=== PATIENT | female | born 1950 | race Caucasian/White ===

== ENCOUNTER 2021-07-09 15:10 | Emergency (ER) | payer MEDICARE, SELFPAY ==
[2021-07-09 15:20] VITALS: BP 131/81; PULSE 73; RESP 16; TEMP 36.6; O2SAT 100
--- NOTE | 2021-07-09 15:21 | ED.BACK ---
HPI - Back Pain/Injury General Chief Complaint: Extremity Injury, Upper Stated Complaint: back pain Time Seen by Provider: 07/09/21 15:21 Source: patient and RN notes reviewed History of Present Illness HPI Narrative: Patient is a 71-year-old female who presents to the urgent care with complaints of left shoulder pain. Patient states that she has terrible arthritis and has been getting cortisone shots in the shoulder. Patient states that her last shot was in April which was also her first 1. Patient states that she has had no changes in range of motion. States that approximately 1 week ago she lifted a 40 pound bag of sunflower seeds and has been hurting ever since. Patient states she has been taking her meloxicam with some mild relief. Denies any radiation to the neck. Denies of chest pain. Denies of any cardiac event. No other acute complaints. No acute distress noted. Patient aware of the plan of care. Some parts of this dictation were generated by voice recognition software and may contain typographical and/or grammatical inaccuracies. Related Data Home Medications Medication Instructions Recorded Confirmed levothyroxine 200 mcg PO DAILY 07/09/21 07/09/21 meloxicam 15 mg PO DAILY 07/09/21 07/09/21 simvastatin 20 mg PO DAILY 07/09/21 07/09/21 Allergies Allergy/AdvReac Type Severity Reaction Status Date / Time hydrocodone Allergy Intermediate Rash Verified 07/09/21 15:42 Review of Systems Review of Systems: CONSTITUTIONAL: Denies fever, chills, or sweats. EYES: Denies visual changes, redness, or discharge. ENT: Denies rhinorrhea, congestion, sore throat, or otalgia. CARDIOVASCULAR: Denies chest pain, palpitations, or edema. RESPIRATORY: Denies cough or dyspnea. GASTROINTESTINAL: Denies abdominal pain, nausea, vomiting, or diarrhea. GENITOURINARY: Denies dysuria or hematuria. SKIN: Denies rash or itching. MUSCULOSKELETAL: Reports of posterior left shoulder pain NEUROLOGIC: Denies headache, numbness, or weakness. All other systems reviewed are negative, except as documented in HPI. PMFSH Comments At the time of my signature, I reviewed and agree with the nursing past medical, surgical, social, and family history. There is no relevant family history pertinent to the patient complaint. Exam Narrative: GENERAL: This is a well-nourished, well-developed patient, in no apparent distress. HEAD: normocephalic, atraumatic. EYES: PERRL. Sclera clear/white. Vision is grossly intact. EARS: External ears normal NOSE: External nose normal with no obvious nasal discharge, nares without redness, no rhinorrhea. THROAT: Mucous membranes moist, posterior pharynx clear. NECK: Neck supple, mild left cervical tenderness CARDIOVASCULAR: Regular rate and rhythm without murmurs, gallops, or rubs. RESPIRATORY: Clear to auscultation. Breath sounds equal bilaterally. No wheezes, rales, or rhonchi. SKIN: warm, intact with no suspicious lesions or rash, good texture and turgor. NEURO: awake, alert, and oriented to person, place and time. There were no obvious focal neurologic abnormalities. EXTREMITIES: Mild to moderate posterior left shoulder pain with palpation. Range of motion to left upper extremity within normal limits. Positive strong left radial pulse with capillary refill less than 2 seconds. Course Course Level of Care: Express Care Visit Vital Signs Vital signs: Vital Signs Temperature 98 F 07/09/21 15:20 Pulse Rate 73 07/09/21 15:20 Respiratory Rate 16 07/09/21 15:20 Blood Pressure 131/81 07/09/21 15:20 Pulse Oximetry 100 07/09/21 15:20 Temperature 98 F 07/09/21 15:20 Pulse Rate 73 07/09/21 15:20 Respiratory Rate 16 07/09/21 15:20 Blood Pressure 131/81 07/09/21 15:20 Pulse Oximetry 100 07/09/21 15:20 Reviewed MDM - Back Pain/Injury MDM Narrative Medical decision making narrative: Advised the patient to complete the oral steroid regimen as prescribed. Use the Flexeril as needed pr
== END 2021-07-09 15:55 | disposition home or self-care (01) ==
PROVIDERS: Emergency Provider Nurse Practitioner Family; PCP Family Medicine
DX: M19.012 Primary osteoarthritis, left shoulder (principal); E78.00 Pure hypercholesterolemia, unspecified; M06.9 Rheumatoid arthritis, unspecified; E03.9 Hypothyroidism, unspecified
CPT/HCPCS: 99213; G0463

== ENCOUNTER 2025-05-29 19:01 | Emergency (ER) | payer MEDICARE, SELFPAY ==
--- NOTE | ~2025-05-29 | CT_ITS ---
EXAMINATION: CT brain wo con DATE: 05/29/2025 19:23 INDICATION: 75-year-old with visual disturbance. TECHNIQUE: Computed tomography (CT) of the head was performed without intravenous contrast. The mA was adjusted according to patient size. Iterative reconstruction technique was employed. The dose-length product was 605.33 mGy-cm. COMPARISON: None FINDINGS: No acute intracranial bleed. No extra-axial collections. No evidence of ventriculomegaly or midline shift. No acute bony lesions. IMPRESSION: 1. No focal abnormalities on the limited noncontrast CT head. Reviewed, dictated and finalized at location T. ROL PANEL OPERATOR CRUDE UNIT
--- NOTE | ~2025-05-29 | XR_ITS ---
EXAMINATION: XR chest 1V portable DATE: 05/29/2025 19:51 INDICATION: Visual disturbance, blurred vision TECHNIQUE: A single frontal view of the chest was obtained. COMPARISON: None. FINDINGS: Heart size is normal. Atherosclerotic aorta. Lungs are free of acute processes. IMPRESSION: 1. No acute findings. Atherosclerotic aorta. Reviewed, dictated and finalized at location T. [employer]
--- OUTSIDE RECORDS SUMMARY | 2025-05-29 10:45 | XMS_ITS | Encounter Summary ---
Author Organization [facility] Healthcare Address [address] [place] [address] Care Team Providers Care Digital Media Planner Name Role Phone Himanshu Liz MD Primary Care Provider [phone] Jared Crump MD Unavailable [phone] Steffany Bailey PT Unavailable Unavailable Reason for Visit * Reason Comments Follow-up Patient here for 6 m onth f/u.Patient having trouble seeing out of left eye.Patient does not seem to have strength in both hands.Patient has neuropathy in both legs and feet and coming from back. Patient has been dx with Piriformis syndrome more on right side and has PT scheduled to start. Patient has noticed that when bending over at the waist has been triggering it. Encounter Details Date Type Department Care Team (Late st Contact Info) Description 05/29/2025 10:45 AM RADIOLOGY TECH Office Visit [facility] [address] [place] [address] Himanshu Liz MD [address] [place] [id number] Need for influenza vaccination (Primary Dx) Social History Tobacco Use Types Packs/Day Years Used Date Smoking Tobacco: Never Smokeless Tobacco: Never Alcohol Use Standard Drinks/Week Comments No 0 (1 standard drink = 0.6 oz pur e alcohol) AUDIT-C Answer Date Recorded Q1: How often do you have a drink containing alc ohol? Monthly or less 04/19/2023 Q2: How many drinks containi ng alcohol do you have on a typical day when you are drinking? 1 or 2 04/19/2023 Q3: How often do you have si x or more drinks on one occasion? Never 04/19/2023 PHQ-2 Answer Date Recorded PHQ-2 Total Score (If total score is 3 or more points, staff should administer the PHQ-9) 0 05/29/2025 Personal Safety Answer Date Recorded Have you ever been in or are you currently in a harmful physical or emotional relationship or is someone making you feel afraid or unsafe? Denies 10/13/2023 Comments No Sex and Gender Information Value Date Recorded Sex Assigned at Not on file Legal Sex Female 10:30 AM RADIOLOGY TECH Gender Identity Not on file Sexual Orientation Choose not to disclose 2020 9:16 AM RADIOLOGY TECH Occupation Industry Job Start Date Job End Date retired Not on file Not on file Not on file documented as of this encounter Last Filed Vital Signs Vital Sign Reading Time Taken Comments Blood Pressure 102/68 05/29/2025 11:13 AM RADIOLOGY TECH Pulse 67 05/29/2025 11:13 AM RADIOLOGY TECH Temperature 36.5 C (97.7 F) 05/29/2025 11:13 AM RADIOLOGY TECH Respiratory Rate 16 05/29/2025 11:13 AM RADIOLOGY TECH Oxygen Saturation 97% 05/29/2025 11:13 AM RADIOLOGY TECH room air Inhaled Oxygen Concentration - - Weight 79.4 kg (175 lb) 05/29/2025 11:13 AM RADIOLOGY TECH Height 162.6 cm (5' 4) 05/29/2025 11:13 AM RADIOLOGY TECH Body Mass Index 30.04 05/29/2025 11:13 AM RADIOLOGY TECH documented in this encounter Functional Status * In the past year, patient experienced: Question Answer Date of Assessment Author One or more falls in the last year 2 2024 11:09 AM RADIOLOGY TECH Mallorie Prado CMA How many times? 1 05/29/2025 11:09 AM RADIOLOGY TECH Mallorie Dorsey CMA Was the patient injured in t he fall? No 05/29/2025 11:09 AM RADIOLOGY TECH Mallorie Prado C MA * BP Location Answer Date of Assessment Author Right arm 05/29/2025 11:13 AM RADIOLOGY TECH Mallorie Prado CMA * BP Location Answer Date of Assessment Author Right arm 05/29/2025 11:13 AM RADIOLOGY TECH Mallorie Prado CMA documented as of this encounter Ordered Prescriptions Prescription Sig Dispense Quantity Refills Last Filled Start Date End Date levothyroxine (SYNTHROID) 175 mcg tablet Take 1 tablet (175 mcg total) by mouth daily 90 tablet 05/29/2025 documented in this encounter Plan of Treatment Not on file documented as of this encounter Goals Goal Patient Goal Type Associated Problems Recent Progress Patient-Stated? Author [facility] Lalitha Glynn RN Note: Patient will establish a comfort-function goal and identify the pain level that will allow the patient to perform desired activities and achieve an acceptable quality of life. documented as of this encounter Visit Diagnoses Diagnosis Need for influenza vaccination- Primary Need for prophylactic vaccination and inoculation against influenza documented in this encounter Discontinued Medications Medication Sig Discontinue Reason Start Date End Da te traZODone (DESYREL) 50 mg tablet Take 1 tablet (50 mg total) by mouth nightly as needed for sleep Therapy completed 08/25/2024 05/29/2025 diazePAM (VALIUM) 5 mg tablet Take 1 tablet (5 mg total) by mouth as needed for anxiety Therapy completed 05/12/2025 05/29/2025 diazePAM (VALIUM) 5 mg tablet Take 1 tablet (5 mg total) by mouth as needed for anxiety Therapy completed 05/08/2025 05/29/2025 amoxicillin (AMOXIL) 500 mg tablet/capsule Take 4 tablets one hour prior to dental procedure Therapy completed 08/13/2024 05/29/2025 vitamin D3-vitamin K2 25 mcg (1,000 unit)-90 mcg tablet,disintegrating Take by mouth Therapy completed 05/29/20 25 levothyroxine (SYNTHROID) 175 mcg tablet Take 1 tablet by mouth once daily Reorder 02/26/2025 05/29/2025 documented as of this encounter Historical Medications * This list may reflect changes made after this encounter. multivitamin with minerals tablet Take 1 tablet by mouth daily added in this encounter Orders Immunization/Injection Count Last Ordered Date First Ordered Date FLU VACCINE HD TRI P F (65Y+) IM - FLUZONE HIGH DOSE 1 05/29/2025 documented in this encounter Care Teams Digital Media Planner Relationship Specialty Start Date End Date Himanshu Liz MD [address] [place] [address] PCP - General 09/24/15 Jared Crump MD [address] [place] [address] Surgeon Orthopedic Surgery 09/29/20 Steffany Bailey PT Physical Therapist Physical Therapy 12/11/24 documented as of this encounter
[2025-05-29 19:03] VITALS: BP 140/86; PULSE 91; RESP 20; TEMP 35.6; O2SAT 95
--- NOTE | 2025-05-29 19:05 | ED_ITS ---
HPI - Neuro Symptoms/Deficit General Chief Complaint: Neuro Symptoms/Deficit Stated Complaint: vision change/ stroke Time Seen by Provider: 05/29/25 19:05 Source: patient and family Mode of arrival: ambulatory Limitations: no limitations History of Present Illness HPI Narrative: Patient is a 75-year-old female with visual disturbance this morning. Patient had left eye loss of vision in a portion of her vision this morning. She went to see the biometric fingerprinting technician with a negative evaluation and workup. She also saw her primary doctor today. She mostly came to the ER for evaluation to make sure there was no brain bleed. Per history to the biometric fingerprinting technician. Onset (ago): day(s) (1) Timing confirmed by: family member Location: other (Left eye) History of same: No Severity: mild Quality: improving Relieving factors: none Exacerbating factors: none Context: gradual onset On Anticoagulants: No Associated symptoms: denies other symptoms Treatments Prior to Arrival: none Related Data Home Medications ?Medication ?Instructions ?Recorded ?Confirmed ?Last Taken ?Type levothyroxine 200 mcg tablet 200 mcg PO DAILY 07/09/21 07/09/21 Unknown History meloxicam 15 mg tablet 15 mg PO DAILY 07/09/2106/19 Unknown History simvastatin 20 mg tablet 20 mg PO DAILY 07/09/2106/19 Unknown History Allergies Allergy/AdvReac Type Severity Reaction Status Date / Time hydrocodone Allergy Intermediate Rash Verified 05/29/25 19:15 Review of Systems 2 Review of Systems: All systems reviewed & are unremarkable except as noted in HPI and below Constitutional: Constitutional: Reports no additional constitutional complaints Eyes: Eyes: Reports no additional eye complaints ENT: Reports system reviewed and no additional complaints, except as documented Cardiovascular: Cardiovascular: Reports no additional cardiovascular complaints Respiratory: Respiratory: Reports no additional respiratory complaints Gastrointestinal: Gastrointestinal: Reports no additional gastrointestinal complaints Genitourinary: Genitourinary: Reports no additional female genitourinary complaints Musculoskeletal: Musculoskeletal: Reports no additional musculoskeletal complaints Integumentary/Breasts: Skin/Breast: Reports system reviewed and no additional complaints, except as docu Neurologic: Reports system reviewed and no additional complaints, except as documented Psychiatric: Psychiatric: Reports no additional psychiatric complaints Endocrine: Endocrine: Reports no additional endocrine complaints Hematologic/Lymphatic: Hematologic/Lymphatic: Reports no additional hematologic/lymphatic complaints Allergic/Immunologic: Allergic/Immunologic: Reports no additional allergic/immunologic complaints Exam 2 Const: General: healthy appearing Nutritional Appearance: well nourished Orientation/consciousness: patient oriented x3 Limitations: no limitations HENMT: Head: normal to inspection Ears: external ears normal F holger/Nose/Sinus: Normal external nose present Eyes: Conjunctivae: conjunctivae normal Pupils: Equal, round and reactive pupils present EOM: EOMs intact bilaterally Neck: Neck: normal visual inspection Chest: Chest palpation & inspection: normal inspection of the chest Resp: Effort & Inspection: normal respiratory effort and not labored A uscultation: clear to auscultation bilaterally and no crackles Cardio: Rate: regular rate Rhythm: regular rhythm Heart sounds: no murmurs GI: Inspection: non-distended GI Palp: Yes Soft to palpation and No Tenderness to palpation present (GI) Auscultation: normal bowel sounds : General: Yes bladder normal to palpation Back/Spine/Pelvis: Back: no CVA tenderness Skin: General skin exam: normal color Rashes: no rashes Wounds: no wounds Neuro: General: patient oriented x3, moves all extremities, no meningeal signs, no focal motor deficits and CN's II-XI intact bilaterally Cranial nerves: Yes Nystagmus not present Speech: normal speech Gait exam (Neuro): Normal gait present Other: Fast exam negative, NIH score 0, GCS is 15 Extrem: General: normal to inspection, no clubbing, cyanosis or edema and no pedal edema Psych: Mental Status: mental status grossly normal Affect: normal affect Attitude: cooperative Course Vital Signs Vital signs: Vital Signs Temperature 35.6 C L 05/29/25 19:03 Pulse Rate 91 05/29/25 19:03 Respiratory Rate 20 05/29/25 19:03 Blood Pressure 140/86 05/29/25 19:03 Pulse Oximetry 95 05/29/25 19:03 Oxygen Delivery Room Air 05/29/25 19:03 Temperature 36.6 C 05/29/25 21:17 Pulse Rate 76 05/29/25 21:17 Respiratory Rate 16 05/29/25 21:17 Blood Pressure 142/85 H 05/29/25 21:17 Pulse Oximetry 98 05/29/25 21:17 Oxygen Delivery Room Air 05/29/25 21:17 MDM MDM Narrative Medical decision making narrative: Patient is a 75-year-old female with a vision change this morning to her left eye which has progressively gotten better throughout the day. Neuro workup at this time. Patient does not meet criteria for TNK. Patient started symptoms this morning and it is already after 7:00 a.m. evening. Differential Diagnosis Differential Diagnosis: CVA, TIA, visual related change Lab Data MDM Lab Attestation statement: I personally reviewed the patient's lab results. 05/29/25 20:16 05/29/25 20:16 Labs: Lab Results 05/29/25 05/29/25 Range/Units 19:37 20:16 WBC 6.2 (4.8-10.8) K/mm3 RBC 4.25 (4.20-5.40) M/mm3 Hgb 13.3 (11.7-13.8) g/dL Hct 39.6 (35.0-42.0) % MCV 93.2 (78.0-102.0) fL MCH 31.3 H (27.0-31.0) pg MCHC 33.6 (32-36) g/dL RDW 13.3 (11.6-14.4) % Plt Count 254 (150-420) K/mm3 MPV 10.6 (9.2-11.8) fl Immature Gran % (Auto) 0.2 H (0.0-0.0) % Neut % (Auto) 68.0 (50.0-70.0) % Lymph % (Auto) 20.1 (18.0-42.0) % Crane % (Auto) 8.6 (2.0-11.0) % Eos % (Auto) 2.6 (1.0-6.0) % Baso % (Auto) 0.5 (0.0-1.0) % Lymph # (Auto) 1.24 (1.10-4.50) K/mm3 Crane # (Auto) 0.53 (0.10-0.90) K/mm3 Eos # (Auto) 0.16 (0.02-0.50) K/mm3 Baso # (Auto) 0.03 (0.00-0.10) K/mm3 Abs Immat Gran (auto) 0.01 H (0.00-0.00) K/mm3 Absolute Neuts (auto) 4.20 (1.70-7.20) K/mm3 Absolute Nucleated RBC 0.00 (0.00-0.00) K/mm3 Nucleated RBC % 0.0 (0-0.0) % ESR 25 H (0-20) mm/hr Sodium 141 (137-145) mmol/L Potassium 4.1 (3.4-5.0) mmol/L Chloride 104 (98-107) mmol/L Carbon Dioxide 26 (22-30) mmol/L Anion Gap 11 (4-12) mmol/L BUN 27 H (7-17) mg/dL Creatinine 0.89 (0.7-1.0) mg/dL Estim Creat Clear Calc 49 ml/min Estimated GFR > 60 (59 - ) Glucose 109 (65-110) mg/dL Calculated Osmolality 298 H (285-295) mOsm/kg Lactic Acid 1.4 (0.7-2.0) mmol/L Calcium 9.6 (8.4-10.2) mg/dL Total Bilirubin 1.1 (0.2-1.3) mg/dL AST 36 (14-36) U/L ALT 26 (6-35) U/L Alkaline Phosphatase 88 (38-126) U/L Troponin I < 0.012 (0.000-0.034) ng/mL Total Protein 7.3 (6.3-8.2) g/dL Albumin 4.6 (3.5-5.1) g/dL Urine Color Light yellow (Yellow) Urine Appearance Sl cloudy A (Clear) Urine pH 6.0 (5.0-8.0) Ur Specific [place] >= 1.030 H (1.010-1.020) Urine Protein Negative (Negative) Urine Glucose (UA) Negative (Negative) Urine Ketones Trace H (Negative) Ur Blood (Man) Trace-intact H (Negative) Urine Nitrate Negative (Negative) Urine Bilirubin Negative (Negative) Urine Urobilinogen 0.2 (0.2-1.0) mg/dL Leukocyte Esterase Rfl 2+ H (Negative) AGUSTÍN/UL Urine RBC 0-2 (0-2) /hpf Urine WBC 21-30 H (0-3) /hpf Urine WBC Clumps Present H (None) /hpf Ur Squamous Epith Cells Occasional (Few) /hpf Urine Bacteria 1+ H (None) /hpf Hyaline Casts 3-4 H (None) /lpf Granular Casts 1-2 H (None) /lpf Imaging Data Attestation: I personally reviewed and interpreted this imaging study as follows: Radiologist's impression: ITS Impressions Head CT 05/29/25 19:24 IMPRESSION: 1. No focal abnormalities on the limited noncontrast CT head. Chest X-Ray 05/29/25 19:52 IMPRESSION: 1. No acute findings. Atherosclerotic aorta. ECG Data EKG #1: Attestation: I personally reviewed and interpreted this ECG as follows: ECG completion date: 05/29/25 ECG completion time: 23:20 normal rate, sinus rhythm, PVCs, PACs, non-specific ST changes, normal QRS and NL axis Discharge Plan Discharge Clinical Impression: Acute UTI, Alteration in vision Patient Disposition: Home Condition: Stable Instructions: Antibiotic Form, Blurred Vision (ED), Urinary Tract Infection in Older Adults (ED) Additional Instructions: Please follow-up with the primary doctor in the next week. I suggest seeing a longitudinal float operator doctor If the vision continues to be a problem. Come back to the emergency room with any worsening condition. Patient Language: Vietnamese Prescriptions: New ciprofloxacin HCl [Cipro] 500 mg tablet 500 mg PO BID 7 Days Qty: 14 0RF No Action levothyroxine 200 mcg tablet 200 mcg PO DAILY meloxicam 15 mg tablet 15 mg PO DAILY simvastatin 20 mg tablet 20 mg PO DAILY prednisone 10 mg tablet See Rx Instructions .ROUTE .COMPLEX Qty: 30 0RF Rx Instructions: 4 tabs daily for days 1-3, 3 tabs daily for days 4-6, 2 tabs daily for days 7-9, 1 tab daily for days 10-12 cyclobenzaprine 5 mg tablet 5 mg PO TID PRN (Reason: muscle spasm) Qty: 20 0RF Follow-up/Referrals: Harms,Himanshu Wilson M.D. [Primary Care Provider] Time of Disposition: 22:07
--- NOTE | 2025-05-29 19:16 | ECG_ITS ---
Test Date: 2025-05-29 19:29:28 Measurements Intervals [place] Rate: 73 P: 7 TN: 134 QRS: 2 QRSD: 88 T: 38 QT: 363 QTc: 400 Interpretive Statements SINUS RHYTHM POSSIBLE RIGHT VENTRICULAR CONDUCTION DELAY BORDERLINE ECG No previous ECG available for comparison Electronically Signed On 05-30-2025 08:41:46 [employer] by Porfirio Galvez D.O.
[2025-05-29 19:43] LABS: Add Urine Microscopic? YES; Glucose Urine UA Negative (Negative); Leukocyte Esterase Ur 2+ LEU/UL (Negative); Nitrate Urine Negative (Negative); Specific Grav Ur >= 1.030 (1.010-1.020)
[2025-05-29 19:52] LABS: Appearance Urine Sl Cloudy (Clear)
--- OUTSIDE RECORDS SUMMARY | 2025-05-29 20:04 | XMS_ITS | Encounter Summary ---
Author Organization [facility] Address [address] [place] [address] Care Team Providers Care Communications Advisor Name Role Phone Howard Valenzuela MD Unavailable [phone] Himanshu Liz MD Primary Care Provider [phone] Howard Valenzuela MD Unavailable [phone] Encounter Details Date Type Department Care Team (Late st Contact Info) Description 06/14/2016 [facility] Outpatient Visit [facility] Orthopedics [address] [place] [address], [address] [address] Unknown, Provider Social History Tobacco Use Types Packs/Day Years Used Date Smoking Tobacco: Never Alcohol Use Standard Drinks/Week Comments No 0 (1 standard drink = 0.6 oz pur e alcohol) Comments No Sex and Gender Information Value Date Recorded Sex Assigned at Not on file Legal Sex Female 6:18 AM COTTON BALER Gender Identity Not on file Sexual Orientation Not on file documented as of this encounter Functional Status * Is person deaf or have serious hearing difficulty? Answer Date of Assessment Author No 05/28/2016 1:10 PM COTTON BALER Dennise Lopez RN * Is person blind or have serious difficulty seeing? Answer Date of Assessment Author No 05/28/2016 1:10 PM COTTON BALER Dennise Lopez RN * Does person have serious difficulty walking/climbing stairs? Answer Date of Assessment Author No 05/28/2016 1:10 PM COTTON BALER Dennise Lopez RN * Does person have difficulty dressing/bathing? Answer Date of Assessment Author No 05/28/2016 1:10 PM Dennise Johnston RN * Does person have difficulty doing errands alone? Answer Date of Assessment Author No 05/28/2016 1:10 PM Dennise Johnston RN documented as of this encounter Mental Status * Does person have difficulty concentrating/remembering/making decisions? Answer Entry Date Author No 05/28/2016 1:10 PM Dennise Johnston RN documented in this encounter Plan of Treatment Not on file documented as of this encounter Visit Diagnoses Not on filedocumented in this encounter Care Teams Communications Advisor Relationship Specialty Start Date End Date Himanshu Liz MD [address] [place] [address] PCP - General Internal Medicine 02/14/16 [place] [id number] [place] [address] [id number] Orthopedic Surgery 11/04/13 [place] [id number] [place] [address] Surgeon Orthopedic Surgery 05/18/20 documented as of this encounter
--- OUTSIDE RECORDS SUMMARY | 2025-05-29 20:04 | XMS_ITS | Encounter Summary ---
Author Organization [facility] Healthcare Address [address] [place] [address] Care Team Providers Care Automation Controls Expert Name Role Phone Himanshu Liz MD Primary Care Provider [phone] Jared Crump MD Unavailable [phone] Yeimy Alanis MA Unavailable [phone] Steffany Bailey PT Unavailable Unavailable Encounter Details Date Type Department Care Team (Late st Contact Info) Description 10/07/2020 Telephone [facility] - Imaging [address] [place] [address] Transcribed Order, Provider Social History Tobacco Use Types Packs/Day Years Used Date Smoking Tobacco: Never Smokeless Tobacco: Never Alcohol Use Standard Drinks/Week Comments No 0 (1 standard drink = 0.6 oz pur e alcohol) AUDIT-C Answer Date Recorded Q1: How often do you have a drink containing alc ohol? 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 Author [facility] No Lalitha Granados, RASHEL Note: Patient will establish a comfort-function goal and identify the pain level that will allow the patient to perform desired activities and achieve an acceptable quality of life. documented as of this encounter Visit Diagnoses Not on filedocumented in this encounter Additional Health Concerns Infection Onset Date Last Indicated Resolved Time COVID: Suspected 01/02/2022 01/02/2022 01/02/2022 2:58 PM CDT COVID: Suspected 01/02/2022 01/02/2022 01/02/2022 3:12 PM CDT COVID: Suspected 01/25/2023 01/25/2023 01/25/2023 10:09 AM CDT COVID19 01/25/2023 01/25/2023 02/04/2023 3:05 AM CDT COVID: Recovered Comment:Added based on recent COVID infection. 02/04/2023 02/11/2023 05/05/2023 3:[address] documented as of this encounter Care Teams Automation Controls Expert Relationship Specialty Start Date End Date Himanshu Liz MD [address] [place] [address] PCP - General 09/24/15 Jared Crump MD [address] [place] [address] Surgeon Orthopedic Surgery 09/29/20 Yeimy Alanis MA [address] [place] [address] [place] [address] ACO Care Experimental Mechanic Spacecraft 02/10/22 02/12/22 Steffany Bailey PT Physical Therapist Physical Therapy 12/11/24 documented as of this encounter
--- OUTSIDE RECORDS SUMMARY | 2025-05-29 20:04 | XMS_ITS | Encounter Summary ---
Author Organization [facility] Healthcare Address [address] [place] [address] Care Team Providers Care Drivability Technician Name Role Phone Himanshu Liz MD Primary Care Provider [phone] Jared Crump MD Unavailable [phone] Yeimy Alanis MA Unavailable [phone] Steffany Bailey PT Unavailable Unavailable Encounter Details Date Type Department Care Team (Late st Contact Info) Description 12/10/2020 Telephone [facility] - Imaging [address] [place] [address] Transcribed Order, Provider Social History [...] points, staff should administer the PHQ-9) 0 10/25/2020 Comments No Sex and Gender Information Value Date Recorded Sex Assigned at Not on file Legal Sex Female 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 Gender Identity Not on file Sexual Orientation Choose not to disclose 2020 9:16 AM NEWS CLIPPING CUTTER Occupation Industry Job Start Date Job End [...] documented as of this encounter Care Teams Drivability Technician Relationship Specialty Start Date End Date Himanshu Liz MD [address] [place] [address] PCP - General 09/24/15 Jared Crump MD [address] [place] [address] Surgeon Orthopedic Surgery 09/29/20 Yeimy Alanis MA [address] [place] [address] [place] [address] ACO Care Junior Account Executive 02/10/22 02/12/22 Steffany Bailey PT Physical Therapist Physical Therapy 12/11/24 documented as of this encounter
--- OUTSIDE RECORDS SUMMARY | 2025-05-29 20:04 | XMS_ITS | Encounter Summary ---
Author Organization [facility] Address [address] [facility] [place] [address] Care Team Providers Care Desktop Manager Name Role Phone Howard Valenzuela MD Unavailable [phone] Himanshu Liz MD Primary Care Provider [phone] Howard Valeznuela MD Unavailable [phone] Encounter Details Date Type Department Care Team (Late st Contact Info) Description 01/04/2024 Lab Requisition [facility] - DermPath Lab [address] [place] [id number] [place]andal [place] [address] Social History Tobacco Use Types Packs/Day Years Used Date Smoking Tobacco: Never Smokeless Tobacco: Never Alcohol Use Standard Drinks/Week Comments No 0 (1 standard drink = 0.6 oz pur e alcohol) Comments No Sex and Gender Information Value Date Recorded Sex Assigned at Not on file Legal Sex Female 6:18 AM ART OBJECTS 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 Answer Date of Assessment Author No 05/28/2016 1:10 PM Dennise Johnston RN * Is person blind or have serious difficulty seeing? Answer Date of Assessment Author No 05/28/2016 1:10 PM Dennise Johnston RN * Does person have serious difficulty walking/climbing stairs? Answer Date of Assessment Author No 05/28/2016 1:10 PM Dennise Johnston RN * Does person have difficulty dressing/bathing? [...] on file documented as of this encounter Procedures Procedure Name Priority Date/Time Associated Diagnosis Comments DERMATOPATHOLOGY Routine 01/02/2024 12:0 0 AM CDT documented in this encounter Results * DERMATOPATHOLOGY (01/02/2024 12:00 AM CDT) Case Report Dermatopathology Report Case: [id number] Authorizing Provider: Randal Miller MD Collected: 01/02/2024 12:00 AM Ordering Location: [facility] - Received: 01/04/2024 01:31 PM DermPath Lab Pathologist: China Villegas MD Specimens: A) - Skin, right lateral calf B) - Skin, nail clippings 4 4:41 PM CDT DERMATOPATHOLOGY LABORATORY Final Diagnosis Specimen A. 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 SKIN, nail clippings: ONYCHOMYCOSIS (B35.1) 4 4:41 PM CDT DERMATOPATHOLOGY LABORATORY at 1641 CDT Clinical History A: R/O KA vs SCC B: R/O Onychomycosis 4 4:41 PM CDT DERMATOPATHOLOGY LABORATORY Gross Description Specimen A: Received is one formalin filled container labeled with the patient's name and designated right lateral calf. The specimen consists of a shave biopsy measuring 48y33j1 mm. Jar 0. Specimen B: Received is one formalin filled container labeled with the patient's name and designated nail clippings. The specimen consists of a nail clipping measuring 5x9x2,3x5x2,4x6x2,3 x3x1,5x4x1,3x7x2,4x 7x2,3x7x2,2x6x1,4x5 x1,3x4x1,3x5x1,2x5x 1,3x8x1,4x4x1,4x4x1 mm. 4:41 PM CDT DERMATOPATHOLOGY LABORATORY Microscopic Description Specimen A. SKIN, right lateral calf: Sections show an endo exophytic crateriform lesion with a keratotic plug, formed by confluent follicle-like structures with relatively large keratinocytes and neutrophilic abscesses. Specimen B. SKIN, nail clippings: Sections show nail plate. Fungal hyphae are present on Periodic acid-Lori (PAS) stained sections. 4:41 PM CDT DERMATOPATHOLOGY LABORATORY Disclaimer An external and internal positive and negative controls are appropriate for the histochemical, immunohistochemical and immunofluorescence stain(s) in this case (if any), except where stated explicitly. The performance characteristics of the stain(s) cited in this report were developed and its performance characteristic determined by the Dermatopathology Laboratory at [facility], directed by Dr. Darlene Owens. These tests need not be, and therefore are not, approved by the [place] Food and Drug Administration. The tests are used for clinical purposes. Billing Codes Specimen Charges Stain Charges 09429 59240 1 1 99520 1 4:41 PM CDT DERMATOPATHOLOGY LABORATORY Embedded Images 4:41 PM CDT DERMATOPATHOLOGY LABORATORY Pathology/Cytology TISSUE SPECIMEN FROM SKIN / Unknown 01/02/2024 01/04/2024 1:31 PM CDT Miscellaneous samples (specimen) TISSUE SPECIMEN FROM SKIN / Unknown 01/02/2024 01/04/2024 1:31 PM CDT Randal Miller MD LAB - PATHOLOGY/CYTOLOGY ORD ERABLES Final Result DERMATOPATHOLOGY LABORATORY [facility] - Department of Dermatology [address] [phone] documented in this encounter Visit Diagnoses Not on filedocumented in this encounter Care Teams Desktop Manager Relationship Specialty Start Date End Date Himanshu Liz MD [address] [place] [address] PCP - General Internal Medicine 02/14/16 [place] [address] [place] [address] [id number] Orthopedic Surgery 11/04/13 [place] [address] [place] [address] Surgeon Orthopedic Surgery 05/18/20 documented as of this encounter
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
--- OUTSIDE RECORDS SUMMARY | 2025-05-29 20:04 | XMS_ITS | Encounter Summary ---
Author Organization [facility] Healthcare Address [address] [place] [address] Care Team Providers Care Fabrication Supervisor Name Role Phone Himanshu Liz MD Primary Care Provider [phone] Jared Crump MD Unavailable [phone] Yeimy Alanis MA Unavailable [phone] Steffany Bailey PT Unavailable Unavailable Encounter Details Date Type Department Care Team (Late st Contact Info) Description 06/29/2020 Telephone [facility] - Imaging [address] [place] [address] Transcribed Order, Provider Social History Tobacco Use Types Packs/Day Years Used Date Smoking Tobacco: Never Smokeless Tobacco: Never Alcohol Use Standard Drinks/Week Comments No 0 (1 standard drink = 0.6 oz pur e alcohol) PHQ-2 Answer Date Recorded PHQ-2 Total Score (If total score is 3 or more points, staff should administer the PHQ-9) 0 04/14/2020 Comments No Sex and Gender Information Value Date Recorded Sex Assigned at Not on file Legal Sex Female 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 Gender Identity Not on file Sexual Orientation Choose not to disclose 2020 9:16 AM GIS PHYSICAL SCIENTIST Occupation Industry Job Start Date Job End [...] documented as of this encounter Care Teams Fabrication Supervisor Relationship Specialty Start Date End Date Himanshu Liz MD [address] [place] [address] PCP - General 09/24/15 Jared Crump MD [address] [place] [address] Surgeon Orthopedic Surgery 09/29/20 Yeimy Alanis MA [address] [place] [address] [address] [place] [address] ACO Care Poultry Farmer Egg 02/10/22 02/12/22 tSeffany Bailey PT Physical Therapist Physical Therapy 12/11/24 documented as of this encounter
--- OUTSIDE RECORDS SUMMARY | 2025-05-29 20:04 | XMS_ITS | Clinical Summary ---
Author Organization [facility] Address [address] [place] [address] Phone Care Team Providers Care Director Of Enterprise Strategy Name Role Phone Himanshu Liz MD Primary Care Provider [phone] Family History Medical History Relation Name Comments Breast Cancer Maternal Aunt Breast Cancer Mother Relation Name Status Comments Maternal Aunt Mother Social History Tobacco Use Types Packs/Day Years Used Date Smoking Tobacco: Never Assessed Comments No Sex and Gender Information Value Date Recorded Sex Assigned at Not on file Legal Sex Female 10:09 PM CDT Gender Identity Not on file Sexual Orientation Not on file Plan of Treatment Health Maintenance Due Date Last Done Comments Hepatitis C Virus (HCV) Screening 1950 TdaP Immunization 1950 Pneumococcal Immunization (5 0+ years) (1 of 1 - PCV) 1999 Zoster Immunization (1 of 2) 1999 Respiratory Syncytial Virus (RSV) Immunization (Adult) (1 - 1-dose 75+ series) 2024 Influenza Immunization (#1) 2025 SARS-COV-2 Immunization ( - season) 2025 Mammogram Discontinued 04/24/2016 Hepatitis B Immunization Aged Out No longer eligible based on patient's age to complete this topic Human Papillomavirus (HPV) Immunization (No Doses Required) Completed Meningococcal Immunization (ACWY) Aged Out No longer eligible based on patient's age to complete this topic Rotavirus Immunization Aged Out No lo nger eligible based on patient's age to complete this topic Procedures Procedure Name Priority Date/Time Associated Diagnosis Comments SERGEY SCREENING BILATERAL DIGITAL W CAD Routine 04/24/2016 4:07 PM PAPER MAKER Encounter for screening mammogram for malignant neoplasm of breast from Last 3 Months or Most Recently Relevant to Health Maintenance Results * SERGEY SCREENING BILATERAL DIGITAL W CAD (04/24/2016 4:07 PM PAPER MAKER) Anatomical Region Laterality Modality breast Bilateral Mammography 04/24/2016 3:54 PM PAPER MAKER Narrative 04/28/2016 4:53 PM PAPER MAKER - SERGEY SCREENING BILATERAL DIGITAL W CAD BILATERAL DIGITAL SCREENING MAMMOGRAM WITH CAD WITH MEDIOLATERAL OBLIQUE CRANIOCAUDAL: 04/24/2016 The study was acquired using digital technology and interpreted from soft copy. Current study was also evaluated with ICAD version 7.2. CLINICAL: Routine screening. Patient has no complaints. No personal history of cancer. Sister with breast cancer. Maternal aunt had breast cancer. COMPARISONS: Comparison is made to exams dated: 06/07/2015 and 06/05/2014 [facility]. BREAST TISSUE: There are scattered fibroglandular densities in both breasts. FINDINGS: There are stable benign asymmetric densities in the right breast. No significant masses, calcifications, or other findings are seen in either breast. There has been no significant interval change. IMPRESSION: BI-RAD 2 BENIGN There is no mammographic evidence of malignancy. A 1 year screening mammogram is recommended. The patient has been or will be contacted. The patient will be entered into a reminder system with a target due date of 1 year for her next screening exam. Electronically signed by: Yvrose Shaffer M.D. pw/:04/28/2016 09:52:23 Button Buttonhole Marker: Madalyn Varela(Jed), [facility] letter sent: Normal Exam Reading location: [facility] BI-RADS: 2 Benign Procedure Note Yvrose Shaffer MD - 04/28/2016 - SERGEY SCREENING BILATERAL DIGITAL W CAD BILATERAL DIGITAL SCREENING MAMMOGRAM WITH CAD WITH MEDIOLATERAL OBLIQUE CRANIOCAUDAL: 04/24/2016 The study was acquired using digital technology and interpreted from soft copy. Current study was also evaluated with ICAD version 7.2. CLINICAL: Routine screening. Patient has no complaints. No personal history of cancer. Sister with breast cancer. Maternal aunt had breast cancer. COMPARISONS: Comparison is made to exams dated: 06/07/2015 and 06/05/2014 [facility]. BREAST TISSUE: There are scattered fibroglandular densities in both breasts. FINDINGS: There are stable benign asymmetric densities in the right breast. No significant masses, calcifications, or other findings are seen in either breast. There has been no significant interval change. IMPRESSION: BI-RAD 2 BENIGN There is no mammographic evidence of malignancy. A 1 year screening mammogram is recommended. The patient has been or will be contacted. The patient will be entered into a reminder system with a target due date of 1 year for her next screening exam. Electronically signed by: Yvrose Shaffer M.D. pw/:04/28/2016 09:52:23 Button Buttonhole Marker: Madalyn Varela(R), [facility] letter sent: Normal Exam Reading location: [facility] BI-RADS: 2 Benign us Himanshu Liz MD IMG MAMMO ORDERABLES Tyra l Result from Last 3 Months or Most Recently Relevant to Health Maintenance Care Teams Director Of Enterprise Strategy Relationship Specialty Start Date End [place] [address] PCP - General Internal Medicine 04/17/16
--- OUTSIDE RECORDS SUMMARY | 2025-05-29 20:04 | XMS_ITS | Encounter Summary ---
Author Organization [facility] Address [address] [facility] [place] [address] Care Team Providers Care Local Coordinator Name Role Phone Howard Valenzuela MD Unavailable [phone] Himanshu Liz MD Primary Care Provider [phone] Howard Valenzuela MD Unavailable [phone] Encounter Details Date Type Department Care Team (Late st Contact Info) Description 04/04/2024 Lab Requisition [facility] DermPath Lab [address] [place] [id number] Randal Miller [place] [address] Social History Tobacco Use Types Packs/Day Years Used Date Smoking Tobacco: Never Smokeless Tobacco: Never Alcohol Use Standard Drinks/Week Comments No 0 (1 standard drink = 0.6 oz pur e alcohol) Comments No Sex and Gender Information Value Date Recorded Sex Assigned at Not on file Legal Sex Female 6:18 AM MEDICAL RECORD 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 Check margins. 1:56 PM CDT DERMATOPATHOLOGY LABORATORY Gross Description Specimen A: Received is one formalin filled container labeled with the patient's name and designated left upper back. The specimen consists of a non-oriented ellipse of skin measuring 8x8x8 mm. The margin is inked green. The specimen is bisected and submitted in 1 cassette. Jar 0. 1:56 PM CDT DERMATOPATHOLOGY LABORATORY Microscopic Description Specimen A. SKIN, left upper back: There is a cup-shaped lesion with central hyperkeratosis with elements of parakeratosis. The epithelial cells making up the frias of the cup show abundant eosinophilic cytoplasm. There is immaturity of the keratinocytes in the outermost layers of this epithelium. In the dermis there is marked fibroplasia with a mixed inflammatory infiltrate containing eosinophils. This lesion is not present at the sampled margin of the specimen. 4 1:56 PM CDT DERMATOPATHOLOGY LABORATORY Disclaimer An external and internal positive and negative controls are appropriate for the histochemical, immunohistochemical and immunofluorescence stain(s) in this case (if any), except where stated explicitly. The performance characteristics of the stain(s) cited in this report were developed and its performance characteristic determined by the Dermatopathology Laboratory at [facility], directed by Dr. Darlene Owens. These tests need not be, and therefore are not, approved by the [place] Food and Drug Administration. The tests are used for clinical purposes. Billing Codes Specimen Charges Stain Charges 39460 1 4 1:56 PM CDT DERMATOPATHOLOGY LABORATORY Embedded Images 1:56 PM CDT DERMATOPATHOLOGY LABORATORY Pathology/Cytolog y TISSUE SPECIMEN FROM SKIN / Unknown 04/02/2024 04/04/2024 2:15 PM CDT Randal Miller MD LAB - PATHOLOGY/CYTOLOGY ORD ERABLES Final Result DERMATOPATHOLOGY LABORATORY [facility] - Department of Dermatology [facility] Medicine [address] [place] [address], [address] [phone] documented in this encounter Visit Diagnoses Not on filedocumented in this encounter Care Teams Local Coordinator Relationship Specialty Start Date End Date Himanhsu Liz MD [address] [place] [phone] PCP - General Internal Medicine 02/14/16 [place] [address] [place] [address] [place] [address] Orthopedic Surgery 11/04/13 [place] [address] [place] [address] Surgeon Orthopedic Surgery 05/18/20 documented as of this encounter
--- OUTSIDE RECORDS SUMMARY | 2025-05-29 20:04 | XMS_ITS | Clinical Summary ---
Author Organization [facility] Address [facility] [place] [address] Care Team Providers Care Remotely Operated Vehicle Name Role Phone Himanshu Liz MD Primary Care Provider [phone] Jared Crump MD Unavailable [phone] Social History Tobacco Use Types Packs/Day Years Used Date Smoking Tobacco: Never Assessed Comments Unknown Sex and Gender Information Value Date Recorded Sex Assigned at Female 12/05/2024 8:21 AM CDT Legal Sex Female 7:02 PM CDT Gender Identity Not on file Sexual Orientation Not on file Plan of Treatment Health Maintenance Due Date Last Done Comments Hepatitis C 1968 Annual Medicare Wellness Visit 2014 Zoster Vaccines (2 of 3) 08/10/2015 06/15/2015 DTaP, Tdap and Td Vaccines (2 - Td or Tdap) 11/28/2022 11/28/2012 COVID-19 Vaccine ( season) 2025 06/17/2024, 05/26/2022, 06/01/2021, Additional history exists Influenza Adult (#1) 2025 05/29/2024, 03/26/2023, 03/21/2022, Additional history exists Dexa Scan (General) Completed 05/01/2023, 05/01/2023, 12/08/2020, Additional history exists RSV Immunization or 60+ Years Completed 06/14/2023 Pneumococcal Vaccine: 50+ Years Completed 11/19/2023, 03/31/2016, 05/20/2013 Hepatitis A Vaccines Aged Out No long er eligible based on patient's age to complete this topic Meningococcal B Vaccine Aged Out No l onger eligible based on patient's age to complete this topic Meningococcal Vaccine Aged Out No logan monserrat eligible based on patient's age to complete this topic RSV Immunizations Under 20 Months Aged Out No longer eligible based on patient's age to complete this topic Insurance AETNA MEDICARE Care Teams Remotely Operated Vehicle Relationship Specialty Start Date End Date Himanshu Liz MD [address] [place] [address] PCP - General INTERNAL MEDICINE 12/05/24 Jared Crump MD [address] [place] [address] [address] [address] ORTHOPAEDIC SURGERY 01/29/25
--- OUTSIDE RECORDS SUMMARY | 2025-05-29 20:04 | XMS_ITS | Clinical Summary ---
Author Organization [facility] Address [address] [facility] [place] [address] Care Team Providers Care Gear Inspector Name Role Phone Howard Valenzuela MD Unavailable Himanshu Liz MD Primary Care Provider [phone] Howard Valenzuela MD Unavailable [phone] Source Comments [facility],non-owned Affiliates and Associated Physician Practices is amultiple site organization consisting of ambulatory clinics and hospital sitesin [place], [place], [place] and [place]. This disclosure is being madepursuant to the Care Everywhere program and may not contain all information available regarding this patient. Last updated 18.[facility] Allergies Active Allergy Reactions Criticality Noted Date Comments Adhesive Sensitivity 11/04/2013 Dust Mite Extract 02/14/2016 Hydrocodone Urticaria,Rash Medium 02/25/2019 Reaction: rash, hives, , , Reaction: Rash, Hydrocodone-Acetaminophen Urticaria Medium 11/04/2013 Molds & Smuts 02/14/2016 Medications * Be aware that medications may not be up to date on this document. Alwaysverify current medications with the patient. B Complex Vitamins (VITAMIN B COMPLEX PO) Take by mouth once daily Active Multiple Vitamins-Minera ls (MULTIVITAMIN & MINERAL PO) Take by mouth once daily Active [place]-3 Fatty Acids (FISH OIL) 1000 MG capsule Take by mouth once daily Active raNITIdine (ZANTAC) 150 MG tablet Take 150 mg by mouth as needed for Heartburn Active magnesium 250 MG tablet Take 250 mg by mouth once daily Active orphenadrine citrate CR 12hr (NORFLEX) 100 MG tablet Take 100 mg by mouth every 12 hours as needed for Muscle Spasms Active senna-docusate (SENOKOT-S) 8.6-50 MG tablet Take 1 Tab by mouth 2 times daily 6 Active magnesium hydroxide (MILK OF MAGNESIA) 400 MG/5ML suspension Take 30 mL by mouth as needed for Constipation 6 Active mupirocin (BACTROBAN) 2 % ointment 6 Active Magnesium Gluconate 550 MG Take 30 mg by mouth 2 times daily Active coenzyme Q10 100 MG capsule Take 100 mg by mouth once daily Active omeprazole (PRILOSEC) 20 MG capsule Take 20 mg by mouth once daily Active aspirin (ASPIRIN) 325 MG tablet Take 325 mg by mouth once daily Active simvastatin (ZOCOR) 20 MG tablet TAKE 1 TABLET BY MOUTH NIGHTLY 0 Active pregabalin (LYRICA) 50 MG capsule Take 50 mg by mouth 2 times daily 0 Active meloxicam (MOBIC) 15 MG tablet Take 15 mg by mouth once daily 0 Active LORazepam (ATIVAN) 2 MG tablet TAKE 1 TABLET BY MOUTH DIRECTED 60 MINUTES PRIOR TO PROCEDURE. 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 10/03/2018 DDD (degenerative disc disease), lumbar 10/04/19 19 Degenerative lumbar spinal stenosis 10/03/2018 Status post total left knee replacement 06/15/20 16 Social History Tobacco Use Types Packs/Day Years Used Date Smoking Tobacco: Never Smokeless Tobacco: Never Alcohol Use Standard Drinks/Week Comments No 0 (1 standard drink = 0.6 oz pur e alcohol) Comments No Sex and Gender Information Value Date Recorded Sex Assigned at Not on file Legal Sex Female 6:18 AM BEACH EXPERT Gender Identity Not on file Sexual Orientation Not on file Last Filed Vital Signs Vital Sign Reading Time Taken Comments Blood Pressure 121/68 05/28/2016 8:40 AM BEACH EXPERT Pulse 78 05/28/2016 8:40 AM BEACH EXPERT Temperature 36.7 C (98.1 F) 05/28/2016 8:40 AM BEACH EXPERT Respiratory Rate 18 05/28/2016 8:40 AM BEACH EXPERT Oxygen Saturation 95% 05/28/2016 8:40 AM BEACH EXPERT Inhaled Oxygen Concentration - - Weight 78 kg (172 lb) 05/18/2020 1:55 PM BEACH EXPERT Height 165.1 cm (5' 5) 05/18/2020 1:55 PM BEACH EXPERT Body Mass Index 28.62 05/18/2020 1:55 PM BEACH EXPERT Plan of Treatment Health Maintenance Due Date Last Done Comments BONE DENSITY TESTING 1950 HEPATITIS C SCREENING 05/07/1968 DTAP/TDAP/TD VACCINES (1 - Tdap) 1968 PNEUMOCOCCAL VACCINE 50+ (1 of 1 - PCV) 1999 ZOSTER VACCINE (1 of 2) 1999 Respiratory Syncytial Virus (RSV) Vaccine Pt: or over 60 yrs (1 - 1-dose 75+ series) 2024 DEPRESSION SCREENING 06/18/2024 MEDICARE AWV CALENDAR YEAR 2024 COVID-19 VACCINE ( - 2024- season) 2025 INFLUENZA VACCINE (#1) 2025 0, 03/31/2019, 04/12/2018, Additional history exists HEPATITIS B VACCINE Aged Out No longe r eligible based on patient's age to complete this topic HIB VACCINE Aged Out No longer eligi ble based on patient's age to complete this topic HPV VACCINE Aged Out No longer eligi ble based on patient's age to complete this topic MENINGOCOCCAL (Group B) VACCINE SHARED DECISION-MAKING Aged Out No longer eligible based on patient's age to complete this topic MENINGOCOCCAL GROUPS A/C/Y/W VACCINE Aged Out No longer eligible based on patient's age to complete this topic Medical Devices Implanted Type Area Tobacco Flavorer Device Identifier Shelf Expiration Date Model / Serial / Lot Cmnt Bone Co Hv 40gm Implanted:Qty: 1 on 05/25/2016 by Howard Valenzuela MD at [facility] Left: Knee [employer] 08/15/2017 [id number] / / [id number] Cmpnt Fem Kn Lt Cr Cmnt Prm Vngrd Intlk Implanted:Qty: 1 on 05/25/2016 by Howard Valenzuela MD at [facility] Left: Knee [employer] [id number] 04/19/2026 [id number] / / [id number] Tray Tib 75mm Kn Cocr I Beam Implanted:Qty: 1 on 05/25/2016 by Howard Valenzuela MD at [facility] Left: Knee [employer] [id number] 10/09/2025 [id number] / / [id number] Cmpnt Ptlr 31mm 1 Pg Wire Ascnt Arcm Kn Implanted:Qty: 1 on 05/25/2016 by Howard Valenzuela MD at [facility] Left: Knee [employer] 03/16/2021 [id number] / / [id number] Brng 34vic92rs Vngrd Arcm Kn Ant Stab Implanted:Qty: 1 on 05/25/2016 by Howard Valenzuela MD at [facility] Left: Knee [employer] 05/18/2021 [id number] / / [id number] Insurance AETNA MEDICARE ADV Advance Directives * Full Code (Latest Code Status on File) Date Activated Date Inactivated Comments 05/25/2016 11:11 AM 05/28/2016 2:47 PM Care Teams Gear Inspector Relationship Specialty Start Date End Date Himanshu Liz MD [address] [place] [address] PCP - General Internal Medicine 02/14/16 [place] [address] [place], [place] [id number] Orthopedic Surgery 11/04/13 [place] [address] [place] [address] Surgeon Orthopedic Surgery 05/18/20
--- OUTSIDE RECORDS SUMMARY | 2025-05-29 20:04 | XMS_ITS | Patient Health Record ---
Author Organization [facility] Address [address] [place] [address] Care Team Providers Care Tetryl Boiling Tub Operator Name Role Phone Judd Graves Unavailable [phone] Reason For Referral No Information Medications Medication SIG (Take, Route, Frequency, Duration) Notes Start Date End Date Status Nabumetone 500 MG take 2 tablets (1,00 0 mg) by oral route 2 times per day prn Oral 2 06/23/2020 Active Levoxyl 100 MCG take 1 tablet (100 m cg) by oral route once daily Oral 1 Active Tylenol 325 MG take 1 tablet (325 m g) by oral route every 4 hours as needed Oral 6 Active Multi-Vitamin take 1 tablet by ora l route daily Oral 1 Active Simvastatin 20 MG take 1 tablet (20 mg ) by oral route once daily in the evening Oral 1 Active Cyclobenzaprine HCl 5 MG take 1 tablet b y oral route 2 times a day Oral 2 Active Pregabalin 50 mg take 1 capsule by or al route 2 times a day oral 2 Activ e Problems Problem Type SNOMED Code ICD Code Onset Dates Problem Status W/U Status Risk Notes Problem Joint pain (03784272) Pain in unspecified joint (M25.50) Active confirmed Plan Of Treatment No Information Insurance Providers Payer Name Payer Address Payer Phone Subscriber Number Group Number Insured Name Patient Relationship to Insured Coverage Start Date Coverage End Date DO NOT USE [place], [place] [id number] Alba Underwood Self - patient is the insured DO NOT USE [place] [id number] Alba Underwood Self - patient is the insured Medical (General) History Surgical History Surgery Date(Month/Year) Back surgery; 2020-06-09 cholecystectomy; 2020-06-09 retinal detachment; 2020-06-09 Knee replacement; 2020-06-09
--- OUTSIDE RECORDS SUMMARY | 2025-05-29 20:04 | XMS_ITS | Encounter Summary ---
Author Organization [facility] Address [facility] [place] [address] Care Team Providers Care Lawn Care Worker Name Role Phone Himanshu Liz MD Primary Care Provider [phone] Jared Crump MD Unavailable [phone] Reason for Visit * Auth/Cert (Routine) Specialty Diagnoses / Procedures Referred By Contac t Referred To Contact Diagnoses Sacroiliac pain Sacroiliac pain [M53.3] Procedures INJECTION,SACROILIAC JOINT INJ FOR SACROILIAC JOINT ANESTH BLOCK SACROILIAC JOINT BLOCK SACROILIAC JOINT Monse Hatfield MD [facility] [address] [place] [address] Phone: tel: fax: Referral ID Status Reason Start Date Expiration Date Visits Re quested Visits Authorized [id number] 1 1 Encounter Details Date Type Department Care Team (Late st Contact Info) Description 01/30/2025 Hospital Encounter [facility] [place], [place] [id number] Monse Hatfield MD [facility] [address] [place] [id number] Social History Tobacco Use Types Packs/Day Years [...] on filedocumented in this encounter Care Teams Lawn Care Worker Relationship Specialty Start Date End Date Himanshu Liz MD [address] [place] [address] PCP - General INTERNAL MEDICINE 12/05/24 Jared Crump MD [address] [place] [address] ORTHOPAEDIC SURGERY 01/29/25 documented as of this encounter
--- OUTSIDE RECORDS SUMMARY | 2025-05-29 20:04 | XMS_ITS | Data Portability ---
Author Organization [facility] Address [address] [address] Assessment No assessment recorded. Plan of Treatment Reminders Order Date Submit Date Provider Last Modified By Organization Details Last Modified Time Details Appointments None record ed. Lab None record ed. Referral None record ed. Procedures None record ed. Surgeries None record ed. Imaging None record ed. Medication Orders None record ed. Patient TargetsNo targets recorded. Patient InstructionsNo instructions recorded. Reason for Referral None Reported. Medical Equipment None Reported. Allergies Allergen ID Allergen Name Allergen Category Reaction Reaction Severity Criticality Documentation Date Start Date Code Code System Note Provider Name and Address Organization Details Recorded Time 90932 hydrocodo ne Not available Not available Not available Not available 05/23/2022 5489 RxNorm Beatriz rausch SWIIM System 12:11:12 Medications Name Sig Start Date Stop Date Status Note LastModified by Organization Details LastModified Time amoxicillin 500 mg capsule active Not Available Not Available Not Available prednisone 10 mg tablet PLEASE SEE ATTACHED FOR DETAILED DIRECTIONS active Not Available Not Available N ot Available meloxicam 15 mg tablet TAKE 1 TABLET BY MOUTH ONCE DAILY active Not Available Not Available No t Available simvastatin 40 mg tablet TAKE 1 TABLET BY MOUTH NIGHTLY active Not Available Not Available No t Available alprazolam 0.25 mg tablet TAKE 1 TABLET BY MOUTH NIGHTLY NEEDED FOR ANXIETY active Not Available Not Available No t Available cephalexin 500 mg capsule TAKE 1 CAPSULE BY MOUTH TWICE DAILY FOR 7 DAYS active Not Available Not Available No t Available simvastatin 20 mg tablet TAKE 1 TABLET BY MOUTH NIGHTLY active Not Available Not Available No t Available levothyroxin e 200 mcg tablet TAKE 1 TABLET BY MOUTH ONCE DAILY active Not Available Not Available No t Available methylpredni solone 4 mg tablets in a dose pack active Not Available Not Available No t Available cyclobenzapr ine 5 mg tablet TAKE 1 TABLET BY MOUTH THREE TIMES DAILY NEEDED FOR MUSCLE SPASM active Not Available Not Available No t Available Vitals Date Recorded Body height Body mass index (BMI) Body weight Heart rate Systolic And Diastolic Provider Name and Address Organization Details Last Updated DateTime 05/23/2022 165.1 cm 29.1 kg/m2 32595.66 g 71 /min 120/80 mm[Hg] Beatriz Conti [facility] 05/23/2022 12:10:57 Social History None recorded. Functional Status None recorded. Mental Status None recorded. Family History Nothing Reported. Medical History No medical history recorded. Gynecological HistoryNo gynecological history recorded. Obstetrics History GPAL:G 0 P 0 0 0 0 Past Encounters Encounter ID Performer Location Encounter Start Date Encounter Closed Date Diagnosis/Indication Diagnosis SNOMED-CT Code Diagnosis ICD10 Code Diagnosis IMO Codes Diagnosis Note [id number] Ilya Grider MD [facility] [address] [facility] [place] [phone] 05/23/2022 11:23:23 05/23/2022 15:28:51 Health Concerns Section Related Observation LastModified by Organization Detai ls LastModified Time None Recorded Concern Status LastModified by Organization Details LastModified Time None Recorded Advance Directives Directive None Recorded Payers Insurance Date Sequence Insurance Name Policy Number Policy Nguyen Covered Member ID Nguyen Member ID Guarantor Name 05/29/2022 1 [facility] (MEDICARE REPLACEMENT/A DVANTAGE - PPO) [id number] Alba Underwood [id number] Alba Underwood OBGyn Episode No OBEpisode recorded.
--- OUTSIDE RECORDS SUMMARY | 2025-05-29 20:04 | XMS_ITS | Encounter Summary ---
Author Organization [facility] Address [address] [place] [address] Care Team Providers Care Education Analyst Name Role Phone Himanshu Liz MD Primary Care Provider [phone] Jared Crump MD Unavailable [phone] Steffany Bailey PT Unavailable Unavailable Encounter Details Date Type Department Care Team (Late st Contact Info) Description 08/25/2022 Telephone [facility] [address] [place] [address] Cherelle Cazares, RASHEL Social History Tobacco Use Types Packs/Day Years Used Date Smoking Tobacco: Never Smokeless Tobacco: Never Alcohol Use Standard Drinks/Week Comments No 0 (1 standard drink = 0.6 oz pur e alcohol) AUDIT-C Answer Date Recorded Q1: How often do you have a drink containing alcohol? Never 07/31/2022 Q2: How many drinks containi ng alcohol do you have on a typical day when you are drinking? Patient does not drink Q3: How often do you have si x or more drinks on one occasion? Never 07/31/2022 PHQ-2 Answer Date Recorded PHQ-2 Total Score (If total score is 3 or more points, staff should administer the PHQ-9) 0 08/22/2022 Comments No Sex and Gender Information Value Date Recorded Sex Assigned at Not on file Legal Sex Female 10:30 AM AUTOMOBILE SALES CONSULTANT Gender Identity Not on file Sexual Orientation Choose not to disclose 2020 9:16 AM AUTOMOBILE SALES CONSULTANT Occupation Industry Job Start Date Job End [...] Date Last Indicated Resolved Time COVID: Suspected 01/25/2023 01/25/2023 01/25/2023 10:09 AM CDT COVID19 01/25/2023 01/25/2023 02/04/2023 3:05 AM CDT COVID: Recovered Comment:Added based on recent COVID infection. 02/04/2023 02/11/2023 05/05/2023 3:[address] documented as of this encounter Care Teams Education Analyst Relationship Specialty Start Date End Date Himanshu Liz MD [address] [place] [address] PCP - General 09/24/15 Jared Crump MD [address] [place] [address] Surgeon Orthopedic Surgery 09/29/20 Steffany Bailey PT Physical Therapist Physical Therapy 12/11/24 documented as of this encounter
--- OUTSIDE RECORDS SUMMARY | 2025-05-29 20:04 | XMS_ITS | Encounter Summary ---
Author Organization [facility] Healthcare Address [address] [place] [address] Care Team Providers Care Irrigation Installation Specialist Name Role Phone Himanshu Liz MD Primary Care Provider [phone] Jared Crump MD Unavailable [phone] Yeimy Alanis MA Unavailable [phone] Steffany Bailey PT Unavailable Unavailable Reason for Visit * Reason Onset Date Comments Scheduling Appointments 12/07/2020 confirme d dexa Encounter Details Date Type Department Care Team (Late st Contact Info) Description 12/07/2020 Telephone [facility] [address] [place] [address] Josefa So RT Scheduling Appointments (confirmed dexa) Social History Tobacco Use Types Packs/Day Years [...] on file Legal Sex Female 10:30 AM PARACHUTE CUSHION INSTALLER Gender Identity Not on file Sexual Orientation Choose not to disclose 2020 9:16 AM PARACHUTE CUSHION INSTALLER Occupation Industry Job Start Date Job End [...] documented as of this encounter Care Teams Irrigation Installation Specialist Relationship Specialty Start Date End Date Himanshu Liz MD [address] [place] [address] PCP - General 09/24/15 Jared Crump MD [address] [place] [address] Surgeon Orthopedic Surgery 09/29/20 Yeimy Alanis MA [address] [place] [address] [place] [address] [employer] Clinical Leader 02/10/22 02/12/22 Steffany Bailey PT Physical Therapist Physical Therapy 12/11/24 documented as of this encounter
--- OUTSIDE RECORDS SUMMARY | 2025-05-29 20:04 | XMS_ITS | Encounter Summary ---
Author Organization [facility] Healthcare Address [address] [place] [address] Care Team Providers Care [employer] Administrator Name Role Phone Himanshu Liz MD Primary Care Provider [phone] Jared Crump MD Unavailable [phone] Yeimy Alanis MA Unavailable [phone] Steffany Bailey PT Unavailable Unavailable Encounter Details Date Type Department Care Team (Late st Contact Info) Description 12/03/2020 Telephone [facility] - Imaging [address] [place] [address] Transcribed Order, Provider Social History [...] on file Legal Sex Female 10:30 AM TIRE FIXER Gender Identity Not on file Sexual Orientation Choose not to disclose 2020 9:16 AM TIRE FIXER Occupation Industry Job Start Date Job End [...] documented as of this encounter Care Teams [employer] Administrator Relationship Specialty Start Date End Date Himanshu Liz MD [address] [place] [address] PCP - General 09/24/15 Jared Crump MD [address] [place] [address] Surgeon Orthopedic Surgery 09/29/20 Yeimy Alanis MA [address] [place] [address] [place] [address] ACO Care Avionics Engineer 02/10/22 02/12/22 Steffany Bailey PT Physical Therapist Physical Therapy 12/11/24 documented as of this encounter
--- OUTSIDE RECORDS SUMMARY | 2025-05-29 20:05 | XMS_ITS | Encounter Summary ---
Author Organization [facility] Healthcare Address [address] [place] [address] Care Team Providers Care Insulation Packer Name Role Phone Himanshu Liz MD Primary Care Provider [phone] Jared Crump MD Unavailable [phone] Yeimy Alanis MA Unavailable [phone] Steffany Bailey PT Unavailable Unavailable Encounter Details Date Type Department Care Team (Late st Contact Info) Description 03/16/2020 Telephone [facility] - Imaging [address] [place] [address] Transcribed Order, Provider Social History Tobacco Use Types Packs/Day Years Used Date Smoking Tobacco: Never Smokeless Tobacco: Never Alcohol Use Standard Drinks/Week Comments No 0 (1 standard drink = 0.6 oz pur e alcohol) PHQ-2 Answer Date Recorded PHQ-2 Score 0 06/30/2019 Comments No Sex and Gender Information Value Date Recorded Sex Assigned at Not on file Legal Sex Female 10:30 AM [employer]ER[place]STER Gender Identity Not on file Sexual Orientation Choose not to disclose 2020 9:16 AM [employer]ER[place] documented as of this encounter Plan of Treatment Not on file documented as of this encounter Goals Goal Patient Goal Type Associated Problems Recent Progress Patient-Stated? Author -[facility] No Lalitha Granados, RN Note: [...] documented as of this encounter Care Teams Insulation Packer Relationship Specialty Start Date End Date Himanshu Liz MD [address] [place] [address] [address] PCP - General 09/24/15 Jared Crump MD [address] [place] [address] Surgeon Orthopedic Surgery 09/29/20 Yeimy Alanis MA [address] [place] [address] [place] [address] ACO Care Image Scientist 02/10/22 02/12/22 Steffany Bailey PT Physical Therapist Physical Therapy 12/11/24 documented as of this encounter
--- OUTSIDE RECORDS SUMMARY | 2025-05-29 20:05 | XMS_ITS | Clinical Summary ---
Author Organization [facility] Address [address] [place] [address] Care Team Providers Care Telecommunications Network Planner Name Role Phone Himanshu Liz MD Primary Care Provider [phone] Jared Crump MD Unavailable [phone] Steffany Bailey PT Unavailable Unavailable Allergies Active Allergy Reactions Criticality Noted Date Comments Adhesive Rash Medium 11/04/2013 House Dust Rhinitis Low 04/26/2020 Hydrocodone Hives,Rash Medium Reaction: rash, hives, , , Reaction: Rash, Mold Rhinitis Low Molds Extract Rhinitis Low 02/14/2016 Medications magnesium 30 mg tablet Take 1 tablet (30 mg total) by mouth daily Active vitamin B complex capsule Take 1 capsule by mouth daily Active oxymetazoline HCl (AFRIN NO DRIP,OXYMETAZOLI N, NASL) Administer 1 spray into affected nostril(s) daily Active ketoconazole (NIZORAL) 2 % cream 03/10/20 21 Active cholecalciferol (Vitamin D3) 400 unit capsule Active coenzyme Q10 100 mg capsule Take 1 capsule (100 mg total) by mouth daily Active ibuprofen 200 mg tab/cap Take by mouth every 6 (six) hours as needed for pain Active TiZANidine (ZANAFLEX) 2 mg capsule Take 1-2 capsules (2-4 mg total) by mouth nightly as needed for muscle spasms 60 capsule 1 05/05/20 24 Active amoxicillin (AMOXIL) 500 mg tablet/capsule Take 4 tablets by mouth 1 hour prior to procedure. 4 tablet/capsu le 1 02/18/20 25 Active meloxicam (MOBIC) 15 mg tablet Take 1 tablet (15 mg total) by mouth daily 100 tablet 1 03/12/20 25 Active pregabalin (LYRICA) 100 mg capsuleIndicatio ns:Lumbar stenosis with neurogenic claudication TAKE 1 CAPSULE BY MOUTH THREE TIMES DAILY 90 capsule 04/14/20 25 Active ALPRAZolam (XANAX) 0.25 mg tablet Take 1 tablet (0.25 mg total) by mouth nightly as needed for anxiety 30 tablet 05/08/20 25 025 Active acetaminophen (TylenoL) 325 mg tablet 1 tablet (325 mg total) Active cyclobenzaprine (FLEXERIL) 5 mg tablet 1 tablet (5 mg total) Active atorvastatin (LIPITOR) 80 mg tablet Take 1 tablet (80 mg total) by mouth daily 30 tablet 11 05/26/20 25 026 Active Additional Information Patient taking differently:80 mg oral Daily,Patient 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 to picking 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 script., Reported on 05/29/2025 multivitamin with minerals tablet Take 1 tablet by mouth daily Active levothyroxine (SYNTHROID) 175 mcg tablet Take 1 tablet (175 mcg total) by mouth daily 90 tablet 05/29/20 25 Active vitamin D3-vitamin K2 25 mcg (1,000 unit)-90 mcg tablet,disintegr ating Take by mouth 025 Discontinu ed(Therapy completed) amoxicillin (AMOXIL) 500 mg tablet/capsule Take 4 tablets one hour prior to dental procedure 4 tablet/capsu le 2 08/13/19 25 025 Discontinu ed(Therapy completed) traZODone (DESYREL) 50 mg tablet Take 1 tablet (50 mg total) by mouth nightly as needed for sleep 30 tablet 08/26/19 25 025 Discontinu ed(Therapy completed) levothyroxine (SYNTHROID) 175 mcg tablet Take 1 tablet by mouth once daily 90 tablet 02/27/20 25 025 Discontinu ed(Reorder ) diazePAM (VALIUM) 5 mg tablet Take 1 tablet (5 mg total) by mouth as needed for anxiety 2 tablet 03/12/20 25 025 Discontinu ed(Reorder ) simvastatin (ZOCOR) 40 mg tablet Take 1 tablet (40 mg total) by mouth nightly 100 tablet 04/08/20 25 025 Discontinu ed(Therapy completed) diazePAM (VALIUM) 5 mg tablet Take 1 tablet (5 mg total) by mouth as needed for anxiety 2 tablet 05/12/20 25 025 Discontinu ed(Therapy completed) diazePAM (VALIUM) 5 mg tablet Take 1 tablet (5 mg total) by mouth as needed for anxiety 2 tablet 05/08/20 025 Discontinu ed(Therapy completed) methylPREDNISolo ne (MEDROL DOSEPACK) 4 mg Dosepack Take as directed on package 1 packet 05/11/20 25 025 Active Problems Problem Noted Date Diagnosed Date Generalized anxiety disorder 11/27/2024 Assessment & Plan (11/27/2024 8:37 AM CDT): Cointinue on prn alprazolam and will follow response. Medicare annual wellness visit, subsequent 11/27 Assessment & Plan (11/27/2024 8:38 AM CDT): Focus of exam is preventative in nature. Reviewed immunizations, reviewed sun/skin cancer screening. Reviweed colon/breat cancer screening. Reviewed fall prevneiton and treatment of knee pain and low back pain. Piriformis syndrome, right 10/17/2024 Primary osteoarthritis of right hip 10/17/2024 Trochanteric bursitis, right hip 10/15/2024 Dizziness and giddiness 06/25/2024 TOPETE (dyspnea on exertion) 05/26/2024 Palpitations 05/26/2024 Keratoacanthoma of lower leg 05/04/2024 Assessment & Plan (05/04/2024 7:50 AM CONTINUOUS MINER OPERATOR HELPER): Referral to dermatology and will montior ersponse. AC joint arthropathy 05/04/2024 Assessment & Plan (05/04/2024 7:50 AM CONTINUOUS MINER OPERATOR HELPER): Stongly suspicous for bone spur. WIll check xray to further evaluate and will montior for symptomatic development. BMI 31.0-31.9,adult 05/04/2024 Assessment & Plan (05/04/2024 7:51 AM CONTINUOUS MINER OPERATOR HELPER): [place]cor[place] 150min/week aerobic exercise. Healthy food choices. Obesity (BMI 30.0-34.9) 05/04/2024 Unspecified injury of head, initial encounter Postconcussion syndrome 10/17/2023 Assessment & Plan (10/17/2023 9:56 AM CDT): Improving. Will continue to monitor. Prediabetes 10/17/2023 Assessment & Plan (11/27/2024 8:37 AM CDT): Continue to follow A1c and will monitor ersponse. Assessment & Plan (10/17/2023 9:56 AM CDT): Stable. Reviewed conservative measures. Will continue to monitor. Hospital discharge follow-up 10/17/2023 Assessment & Plan (10/17/2023 9:56 AM CDT): ILisa NP have personally reviewed pertinent inpatient and/or ED records, including discharge medications and Clindesk if applicable. This patient's discharge medication list has been reviewed and reconciled with her outpatient medication list and has also been reviewed with patient and/or caregiver. I have noted any changes. Impacted cerumen of left ear 05/16/2023 Assessment & Plan (05/16/2023 7:41 PM CONTINUOUS MINER OPERATOR HELPER): Cerumen impaction was removed from the left ear. I did not feel it was impacting her hearing. Needs no further intervention. Tinnitus, right ear 05/16/2023 Assessment & Plan (05/16/2023 7:43 PM CONTINUOUS MINER OPERATOR HELPER): Her tinnitus is probably due to the mild high-frequency bilateral sensorineural hearing loss. I talked with the patient about tinnitus. Typically it is due to hearing loss but there are other potential reasons for it. It can occur due to cervical strain or TMJ disorder. Also potentially due to tumors which are usually benign. Unfortunately there is no widely accepted or successful treatment for it. There are a lot of lhet-jpx-[id number] remedies which generally do not help and I really do not recommend any of them. I think she is really only a borderline candidate for hearing aids. I did not really strongly recommend them. Hearing aids can help with tinnitus but she is not really interested in pursuing that. Non-seasonal allergic rhinitis 05/16/2023 Assessment & Plan (05/16/2023 7:42 PM CONTINUOUS MINER OPERATOR HELPER): We talked quite a bit about her allergies. I think she probably would benefit from using Zyrtec regularly as well as possibly Flonase to each side of the nose. Some of her symptoms might be exacerbated by a deviated septum and we talked about that. She really does not want to pursue any surgical management nor do I highly recommend it. She will try medication and follow-up with as needed. Abnormal mammogram 10/10/2022 Swelling of right lower extremity 08/15/2022 Aftercare following left knee joint replacement surgery 08/11/2022 Greater trochanteric bursitis of left hip 2022 History of arthroplasty of left hip 07/13/2022 Aftercare following surgery 02/17/2022 Acute pain of left shoulder 07/28/2021 Assessment & Plan (07/28/2021 6:17 PM CONTINUOUS MINER OPERATOR HELPER): Instructed to schedule physical therapy and avoid strenuous actiivies with left arm. Refuses MRI as she will not be able to lie still. Re-start meloxicam. Declines tramadol, meloxicam, or acetaminophen. Declines pain management referral. Encouraged follow up with ortho. Class 1 obesity due to exces s calories with serious comorbidity and body mass index (BMI) of 31.0 to 31.9 in adult 07/28/2021 Assessment & Plan (10/10/2024 2:40 PM CDT): Weight appropriate for patient. Assessment & Plan (10/17/2023 9:56 AM CDT): Encouraged exercise. Assessment & Plan (07/28/2021 6:18 PM CONTINUOUS MINER OPERATOR HELPER): Discussed healthy diet and importance of regular physical activity. Primary osteoarthritis of left hip 04/27/2020 Lumbar spondylosis with right L5 radiculopathy 0 03/01/2020 Spondylolysis, cervical region 03/01/2020 Hand arthritis 06/30/2019 Trigger index finger of right hand 06/30/2019 Trigger middle finger of right hand 12/17/2018 Assessment & Plan (12/17/2018 2:29 PM CDT): Diagnosis discussed Treatment with steroid injection discussed. The patient knows that it may require a 2nd injection in 2 weeks to fully resolve this issue. She is also aware that if for some reason the injection is any effective, we can also offer her a surgical release. The patient would like to proceed with steroid injection today. See procedure note. Return in 2 weeks BMI 29.0-29.9,adult 11/01/2018 Assessment & Plan (11/01/2018 1:38 PM CDT): Reviewed need to lose weight, reviewed health benefits. Reviewed recommendations for daily intake & activity 20-30 minutes/day. Discussed healthy diet and importance of regular physical activity. Insect bite of left back wall of thorax 11/02/19 19 Assessment & Plan (11/01/2018 1:39 PM CDT): Please complete your antibiotic as directed. Wash area with plain soap and water. Apply antibiotic ointment and cover with bandage if it starts any drainage. Tylenol/Motrin for fever/pain Follow up in 7-10 days if you are not getting any better; sooner if worsening. Reviewed abx SE & scheduling. Reviewed red flags. Will monitor for streaking. Chronic bilateral low back pain with right-sided sciatica 10/03/2018 Assessment & Plan (10/10/2024 2:40 PM CDT): Will start on Prednisone high dose taper. Advsied to hold Meloxicam and not take IBU. Will continue to monitor. Going to [facility] 10/16/2024. Will continue to monitor. Orders: predniSONE (DELTASONE) 20 mg tablet; Take 3 tabs (60mg) daily for 3 days, then take 2 tabs (40mg) daily for 3 days, then take 1 tab (20mg) daily for 3 days. Lumbar radiculopathy 10/03/2018 Lumbar stenosis with neurogenic claudication Assessment & Plan (11/27/2024 8:36 AM CDT): Low back pain and reviewed ambulation and exericse with fall prevnetion. Continues on meloxicam and will montior response. Assessment & Plan (10/10/2024 2:40 PM CDT): Will increase Lyrica to 100 mg TID and will monitor response. Will continue to monitor. Going to see [facility] 10/16/2024. Orders: pregabalin (LYRICA) 100 mg capsule; Take 1 capsule (100 mg total) by mouth 3 (three) times a day DDD (degenerative disc disease), lumbar 10/04/19 19 Encounter for Medicare annual wellness exam 09/16 Assessment & Plan (10/02/2018 9:58 PM CDT): Completed yearly medicare physical. Reviewed routine screening. Refuses colonoscopy & pneumonoccal vaccines. Mammogram to be completed. Reviewed diet/exercise recommendations. Reviewed safety: no drinking & driving, no texting & driving. Breast cancer screening 10/02/2018 Assessment & Plan (10/02/2018 9:58 PM CDT): Mammogram order given; will call with results when received. Encouraged to perform monthly SBE. Colonoscopy refused 10/02/2018 Assessment & Plan (10/02/2018 9:59 PM CDT): Refuses colonoscopy and cologuard at this time. Reviewed need to assess for polyps. Pneumococcal vaccine refused 10/02/2018 Assessment & Plan (10/02/2018 9:59 PM CDT): Refuses pneumococcal vaccines. Arthritis of knee 04/08/2015 Overview (09/21/2016): Arthritis of knee Assessment & Plan (11/27/2024 8:37 AM CDT): Continue f/u with Dr. Crump and will follow with orthopeidcs. Hyperlipidemia 04/16/2014 Overview (09/23/2016): Hyperlipidemia Assessment & Plan (11/27/2024 8:35 AM CDT): Stable on simvastatin and will montior response. No new myalgias/arthalgias and will follow respnose. No acute chagnes. Assessment & Plan (05/04/2024 7:50 AM CONTINUOUS MINER OPERATOR HELPER): Stable on statin therapy. No new myalgias/arthalgias. Assessment & Plan (10/17/2023 9:57 AM CDT): Tolerating statin without side effects. Reviewed lifestyle recommendations. Will continue to monitor. Assessment & Plan (10/02/2018 9:57 PM CDT): Secondary prevention. Reviewed medications. Lipid panel ordered; will call w/results when rec'd. Denies any statin Ses. Reviewed diet/exercise recommendations. Reviewed red flags. Osteoarthrosis involving lower leg 11/04/2013 Overview (04/06/2017): Overview: 2015 IMO Updt Arthritis 11/01/2013 Overview (09/20/2016): Arthritis Assessment & Plan (10/02/2018 9:56 PM CDT): Appointment at Dr Calles's office 10/03/18. Difficulty expressing exactly where pain is or how to describe. Discussed otc/non-pharm methods to help w/pain. Hypothyroidism 11/01/2013 Overview (09/20/2016): Hypothyroidism Assessment & Plan (11/27/2024 8:35 AM CDT): Clinically euthyriod. Continue to follow tfts and will monitor response. Assessment & Plan (10/02/2018 9:57 PM CDT): TSH/T4 ordered; will call w/results when rec'd. Reviewed med Ses & scheduling. Reviewed sxs hypo/hyperthyroidism. No changes at this time. Sensorineural hearing loss (SNHL) of both ears 0 11/06/2012 Assessment & Plan (11/27/2024 8:36 AM CDT): Continue surviellance and will montior ersponse. Other chest pain Resolved Problems Problem Noted Date Diagnosed Date Resolved Date Trigger finger, left ring finger 01/31/2022 02/17/2022 Primary osteoarthritis of right knee 02/28/2019 08/11/2022 Abnormal stress echo 07/26/2017 019 Status post total left knee replacement 06/15/2016 10/01/2018 Hypertension 11/01/2013 10/26/2017 Overview (09/23/2016): HTN (hypertension) Encounters Date Type Department Care Team Description 05/29/2025 10:45 AM CONTINUOUS MINER OPERATOR HELPER [facility] Visit [facility] [address] [phone] Himanshu Liz MD Need for influenza vaccination (Primary Dx) 05/29/2025 Telephone [facility] [address] [phone] Himanshu Liz MD Medical Question/Miscellaneous; Eye Problem 05/26/2025 9:15 AM CONTINUOUS MINER OPERATOR HELPER Office Visit [facility] at [address] [place] [phone] Toney Conner MD Palpitations (Primary Dx); TOPETE (dyspnea on exertion); Pure hypercholesterolemia 05/13/2025 9:55 AM CONTINUOUS MINER OPERATOR HELPER Lab [facility] [address] [place] [phone] Dysuria; Mixed hyperlipidemia 2025 10:45 AM CONTINUOUS MINER OPERATOR HELPER Office Visit [facility] [address] [facility] [address] [place] [address] Sania Barrera, ARTUR Lumbar radiculopathy (Primary Dx); Lumbar stenosis with neurogenic claudication 2025 8:17 AM CONTINUOUS MINER OPERATOR HELPER - 2025 11:59 PM CONTINUOUS MINER OPERATOR HELPER Hospital Encounter [facility] [address] [address] Lumbar radiculopathy Discharge Disposition: Discharge to home or self care 05/09/2025 3:15 PM CONTINUOUS MINER OPERATOR HELPER Office Visit [facility] at [address] [place] [phone] Jenna Moreno NP Acute pain of left shoulder (Primary Dx) 05/08/2025 Orders Only [facility] [address] [phone] Himanshu Liz MD 05/08/2025 Orders Only [facility] [address] [place] [address] [address] [place] [address] Sania Barrera NP 05/08/2025 Telephone [facility] [address] [phone] Himanshu Liz MD Medication Request 03/27/2025 Orders Only [facility] [address] [phone] Himanshu Liz MD Dysuria (Primary Dx) 03/12/2025 Orders Only [facility] [address] [place] [address] [address] [place] [address] Sania Barrera NP 03/10/2025 Orders Only [facility] [address] [place] [address] [address] [place] [address] Sania Barrera NP Lumbar radiculopathy (Primary Dx) 03/04/2025 Telephone [facility] [place] [address], [address] [place] [phone] Wendy Contreras, RASHEL PMC Intake Assessment 03/03/2025 Orders Only [facility] [address] [phone] Himanshu Liz MD Neuropathy (Primary Dx) from Last 3 Months Immunizations Immunization Administration Dates Next Due COVID-19 mRNA ([place]) 0.3 m L (30 mcg) vaccine (12 years and up) 06/17/2024 H1N1 All Forms 05/17/2009 Influenza, Quadrivalent, Hig h Dose, Preservative Free, Intrr 03/26/2023,03/21/2022,05/06/2021,04/08 Influenza, Quadrivalent, Spl it, Preservative Free, Intramuscular 03/31/2016 Influenza, Split 06/04/2012,04/11/2011, 0 Influenza, Trivalent, Adjuva nted, Intramuscular 03/31/2019 Influenza, Trivalent, High D ose, Split, Preservative Free, Intramuscular 05/29/2025,05/29/2024,04/08/2020,04/12,05/03/2017 Influenza, Trivalent, IM (MDV) 05/27/2015 Influenza, Trivalent, Split, Preservative Free, Intradermal 05/05/2014,04/23/2013 Influenza, Unspecified 04/22/2024(Deferr ed: Patient Refused),03/15/2022(Deferred: Patient Refused),03/31/2019,03/21/2018(Deferre d: Patient Refused),05/03/2017 Pfizer SARS-CoV-2 Monovalent Vaccination (12+ Yrs) PURPLE 06/01/2021,08/27/2020,08/06/2020 Pfizer SARS-CoV-2 Monovalent Vaccination (5-11 Yrs) 05/07/2021,08/27/2020,08/06/2020 Pfizer Sars-Cov-2 Bivalent V accination (12+ YRS) 05/26/2022 Pneumococcal Conjugate PCV 13 03/31/2016 Pneumococcal Conjugate Pcv20 11/19/2023 Pneumococcal Polysaccharide PPV23 05/20/2013 RSV Vaccine, Pref, Recombina nt, Subunit, Adjuvanted, PF, IM (Arexvy) 06/14/2023 Tdap 11/28/2012 ZOSTER LIVE 06/15/2015 Surgical History Surgery Date Site/Laterality Comments OTHER SURGICAL HISTORY D&C CHOLECYSTECTOMY 06/18/2010 - 06/17/2011 Cholecystectomy CHOLECYSTECTOMY Cholecystectomy LUMBAR SPINE SURGERY Surgery, lumbar spine REPLACEMENT TOTAL KNEE 05/25/2016 Left BREAST CYST EXCISION TONSILLECTOMY 06/18/1954 - 06/17/1955 RETINAL DETACHMENT SURGERY BREAST BIOPSY Left Breast bx, benign HIP ARTHROPLASTY Left CARPAL TUNNEL RELEASE Bilateral TRIGGER FINGER RELEASE Bilateral JOINT REPLACEMENT Left knee SPINE SURGERY L4 L5 1989? Medical History Medical History Date Comments Hx Other Medical detatched retin a repir Hx Other Medical 1985 Low back surger y Gastroesophageal reflux disease GERD Hyperlipidemia Hyperlipidemia Osteoporosis Osteoporosis Osteoarthritis Osteoarthritis Hx Other Medical Back pain Hx Other Medical 1984 laproscopy Endometritis Endometriosis Neck pain Neck pain; Comme nts: AWM 04/15/2014 - Knee pain Knee pain; Comme nts: AWM 04/15/2014 - Disorder of thyroid Thyroid dise ase Female infertility Infertility, female; Comments: JT 04/16/2014 -Pt. thinks secondary to endometriosis, and she had an embedded IUD removed. Chest pain Status post total left knee replacement 06/15/2016 Abnormal stress echo 07/26/2017 Anxiety Cervical disc disease Cervical stenosis (uterine cervix) Gastric reflux Hypothyroidism Disc disorder of lumbar region Lumbar stenosis Peripheral neuropathy Allergic rhinitis Cataracts, bilateral Delayed emergence from gener al anesthesia SCC (squamous cell carcinoma ), leg, right 02/13/2024 Family History Medical History Relation Name Comments Breast cancer Cousin Whitney unknown Coronary artery disease Father Al Oscar nary artery disease; Cause of : Coronary artery disease/Coronary artery disease; Heart disease Father Al Cardiovascular disease; Hyperlipidemia Father Al Hyperlipidemi a; Hypertension Father Al Hypertension; Pancreatic cancer Maternal cousin Asthma Mother Lillie Asthma; COPD Mother Lillie Emphysema Mother Lillie emphysema; Caus e of : emphysema Heart disease Mother Lillie Cardiovascular disease; Hyperlipidemia Mother Lillie Hyperlipidemi a; Hypertension Mother Lillie Hypertension; Other Mother Lillie lung diseae; Ca use of : lung diseae Vision loss Mother Lilile Breast cancer Mother's Sister November unknown COPD Mother's Sister November Cancer Mother's Sister November Cancer Other 1 cousin Trang pancreatic can cer Heart disease Other 2 Family history of Heart disease; Thyroid disease Other 3 Family histo ry of Thyroid disorder; Diabetes Other 4 Family history of Diabetes mellitus; Hypertension Other 5 Family history of Hypertension; Parkinsonism Other 6 uncle Edward Family history of Parkinson's disease; Allergy (severe) Sister Karoline Arthritis Sister Karoline arthritis; Breast cancer Sister Karoline unknown Cancer Sister Karoline Thyroid disease Sister Karoline Ovarian cancer Neg Hx Prostate cancer Neg Hx Relation Name Status Comments Cousin Whitney Alive Father Al (Age 60) Maternal cousin Mother Lillie (Age 79) Mother's Sister Kathi Alive Other 1 cousin Trang Other 2 Other 3 Other 4 Other 5 Other 6 uncle Edward Sister Karoline Alive Social History Tobacco Use Types Packs/Day Years Used Date Smoking Tobacco: Never Smokeless Tobacco: Never Tobacco Cessation:Counseling Given: No Alcohol Use Standard Drinks/Week Comments No 0 [...] on file Legal Sex Female 10:30 AM CONTINUOUS MINER OPERATOR HELPER Gender Identity Not on file Sexual Orientation Choose not to disclose 2020 9:16 AM CONTINUOUS MINER OPERATOR HELPER Occupation Industry Job Start Date Job End Date retired Not on file Not on file Not on file Obstetrics History Para Term AB IAB SAB Ectopic Multiple Livin g Live Births 0 0 0 0 0 0 0 0 0 0 0 Last Filed Vital Signs Vital Sign Reading Time Taken Comments Blood Pressure 102/68 05/29/2025 11:13 AM CONTINUOUS MINER OPERATOR HELPER Pulse 67 05/29/2025 11:13 AM CONTINUOUS MINER OPERATOR HELPER Temperature 36.5 C (97.7 F) 05/29/2025 11:13 AM CONTINUOUS MINER OPERATOR HELPER Respiratory Rate 16 05/29/2025 11:13 AM CONTINUOUS MINER OPERATOR HELPER Oxygen Saturation 97% 05/29/2025 11:13 AM CONTINUOUS MINER OPERATOR HELPER room air Inhaled Oxygen Concentration - - Weight 79.4 kg (175 lb) 05/29/2025 11:13 AM CONTINUOUS MINER OPERATOR HELPER Height 162.6 cm (5' 4) 05/29/2025 11:13 AM CONTINUOUS MINER OPERATOR HELPER Body Mass Index 30.04 05/29/2025 11:13 AM CONTINUOUS MINER OPERATOR HELPER Plan of Treatment Health Maintenance Due Date Last Done Comments Hepatitis B Screening 1968 Zoster Vaccine (2 of 3) 08/10/2015 06/15/2015 DTaP/Tdap/Td Vaccine (2 - Td or Tdap) 11/28/2022 11/28/2012 Covid-19 Vaccine (2024-2 6 season) 2025 06/17/2024, 05/26/2022, 06/01/2021, Additional history exists Osteoporosis Screening-Bone Density Scan 05/01/2025 05/01/2023, 12/08/2020, 06/14/2017, Additional history exists Well Visit 65+ 11/18/2025 11/18/2024, 08/2023, 08/22/2022, Additional history exists Colon Cancer Screening-DNA Stool 12/13/2025 12/13/2022, 08/26/2019, 12/28/2003 Depression Screening 05/29/2026 05/29/2025, 12/10/2024, 11/18/2024, Additional history exists Fall Risk Assessment 05/29/2026 05/29/2025, 12/10/2024, 11/18/2024, Additional history exists Hepatitis C Screening Completed 05/27/2015 Pneumococcal vaccine 65+ Completed 024, 03/31/2016, 05/20/2013 Breast Cancer Screening-Mammogram Discontinued 07/01/2024, 01/09/2023, 12/09/2021, Additional history exists Influenza Vaccine Completed 05/29/2025, , 03/26/2023, Additional history exists Goals Goal Patient Goal Type Associated Problems Recent Progress Patient-Stated? Author [facility] Lalitha Glynn, RN Note: Patient will establish a comfort-function goal and identify the pain level that will allow the patient to perform desired activities and achieve an acceptable quality of life. Medical Devices Implanted Type Area Weed Controller Device Identifier Shelf Expiration Date Model / Serial / Lot [employer] [id number] Caliente 50mm 32mm Hip Neutral Liner Acetabular Altrx Sterile Latex Free - [id number] Implanted:Qty: 1 on 09/29/2020 by Jared Crump MD at [facility] Left: Hip [employer] 07/18/2022 [id number] / / [id number] [employer] [id number] Caliente 50mm Sector Hip Shell Acetabular Gription Sterile Latex Free - [id number] Implanted:Qty: 1 on 09/29/2020 by Jared Crump MD at [facility] Left: Hip [employer] 08/15/2030 [id number] / / [id number] [employer] [id number] Actis 105mm Collar Hip 5 High Offset Stem Femoral - [id number] Implanted:Qty: 1 on 09/29/2020 by Jared Crump MD at [facility] Left: Hip [employer] 06/17/2030 [id number] / / [id number] [employer] [id number] Articul/Juan Daniel 32mm Hip +5mm 05/31 Taper Head Femoral Biolox Delta Latex Free - [id number] Implanted:Qty: 1 on 09/29/2020 by Jared Crump MD at [facility] Left: Hip [employer] 04/17/2025 [id number] / / [id number] [employer] Cement Bone Simplex Gentamicin High Viscosity 40 6195-1-001 - [id number] Implanted:Qty: 1 on 07/31/2022 by Jared Crump MD at [facility] Right: Knee [employer] 01/16/2024 6195-1-001 / / [id number] [employer] Cement Bone Simplex Gentamicin High Viscosity 40gm 6195-1-001 - [id number] Implanted:Qty: 1 on 07/31/2022 by Jared Crump MD at [facility] Right: Knee [employer] 01/16/2024 6195-1-001 / / [id number] [employer] Attune S+ Cement Fix Bearing Knee 5 Baseplate Tibial [id number] - [id number] Implanted:Qty: 1 on 07/31/2022 by Jared Crump MD at [facility] Right: Knee [employer] [id number] 02/16/2032 [id number] / / [id number] [employer] Attune Cemented Posterior Stabilize Knee Right 6 Component [id number] - [id number] Implanted:Qty: 1 on 07/31/2022 by Jared Crump MD at [facility] Right: Knee [employer] [id number] 04/17/2032 [id number] / / [id number] [employer] Attune 7mm Posterior Stabilize Fix Bearing Knee 6 Insert Tibial [id number] - [id number] Implanted:Qty: 1 on 07/31/2022 by Jared Crump MD at [facility] Right: Knee [employer] [id number] 01/15/2027 [id number] / / [id number] Procedures Procedure Name Priority Date/Time Associated Diagnosis Comments EGFR Routine 05/13/2025 9:54 AM CONTINUOUS MINER OPERATOR HELPER Mixed hyperlipidemia URINALYSIS, MICROSCOPIC ONLY Routine 05/13/2025 9:54 AM CONTINUOUS MINER OPERATOR HELPER Dysuria DIFFERENTIAL AUTO Routine 05/13/2025 9:5 4 AM CONTINUOUS MINER OPERATOR HELPER Mixed hyperlipidemia CBC WITH AUTO DIFFERENTIAL Routine 05/13/2025 9:54 AM CONTINUOUS MINER OPERATOR HELPER Mixed hyperlipidemia COMPREHENSIVE METABOLIC PANEL Routine 05/13/2025 9:54 AM CONTINUOUS MINER OPERATOR HELPER Mixed hyperlipidemia LIPID PANEL Routine 05/13/2025 9:54 AM CONTINUOUS MINER OPERATOR HELPER Mixed hyperlipidemia URINALYSIS AND REFLEX TO MICROSCOPIC AND CULTURE Routine 05/13/2025 9:54 AM CONTINUOUS MINER OPERATOR HELPER Dysuria MRI LUMBAR SPINE WO CONTRAST Schedule Routine, Read Routine (OP Routine) 2025 9:32 AM CONTINUOUS MINER OPERATOR HELPER Lumbar radiculopathy DIAGNOSTIC MAMMOGRAM BILATERAL W CHEVY Schedule Routine, Read Routine (OP Routine) 07/01/2024 10:57 AM CONTINUOUS MINER OPERATOR HELPER Abnormal mammogram DEXA AXIAL SKELETON BONE DENSITY 1 OR MORE SITES Schedule Routine, Read Routine (OP Routine) 05/01/2023 1:50 PM CONTINUOUS MINER OPERATOR HELPER Asymptomatic menopausal state STOOL DNA COLOGUARD Routine 12/13/2022 11:30 AM CDT Colon cancer screening SERUM HEPATITIS PANEL Routine 05/27/2015 4:12 PM CONTINUOUS MINER OPERATOR HELPER from Last 3 Months or Most Recently Relevant to Health Maintenance Results * eGFR (05/13/2025 9:54 AM CONTINUOUS MINER OPERATOR HELPER) eGFR 90 >=60 mL/min/1. 73 m2 Comment: Interpretive Data Reference Interval Normal >/= 90 mL/min/1.73m2 Mildly decreased* 60 - 89 mL/min/1.73m2 Mildly to moderately decreased 45 - 59 mL/min/1.73m2 Moderately to severely decreased 30 - 44 mL/min/1.73m2 Severely decreased 15 - 29 mL/min/1.73m2 Kidney Failure < 15 mL/min/1.73m2 *Relative to young adult level Estimated glomerular filtration rate is determined by the 2020 CKD-EPI equation recommended by the National Kidney Foundation (A Unifying Approach to GFR Estimation: Recommendations of the NKF-ASK Task Force on Reassessing the Inclusion of Race in Diagnosing Kidney Disease, JASN 2020). The CKD-EPI equation should not be used for patients with unstable renal function and has not been validated in children and those over 70. Current interpretive data was last reviewed 2021. Testing performed by: [facility], [address] [facility], [place]., [address] Blood 05/13/2025 9:54 AM CONTINUOUS MINER OPERATOR HELPER 05/13/2025 3:19 PM CONTINUOUS MINER OPERATOR HELPER us Himanshu Liz MD LAB BLOOD ORDERABLES Tyra chacon Result [facility] ([facility]) 1 [facility] Department [place] [address] * Differential, auto (05/13/2025 9:54 AM CONTINUOUS MINER OPERATOR HELPER) Neutrophil abs 3.31 1.50 - 6.50 K/cumm Comment:Testing performed by : [facility], [address] [place] [address]., [address] Imm gran abs 0.02 0.00 - 0.10 K/cumm [facility] ([facility]) Comment:Testing performed by : [facility], [address] [place] [address]., [address] Lymphocyte abs 1.42 0.80 - 3.30 K/cumm [facility] ([facility]) Comment:Testing performed by : [facility], [address] [place] [address]., [address] Monocyte abs 0.51 0.20 - 0.80 K/cumm [facility] ([facility]) Comment:Testing performed by : [address], [address] Eosinophil abs 0.19 0.00 - 0.50 K/cumm [facility] ([facility]) Comment:Testing performed by : [facility], [address] [place] [address]., [address] Basophil abs 0.06 0.00 - 0.10 K/cumm [facility] ([facility]) Comment:Testing performed by : [address] [address] Neutrophil pct 60.0 % [facility] ([facility]) Comment: Interpretive Data Percent cell count reference ranges are not reported, since discordance with absolute values may lead to misinterpretation of CBC data. Current Interpretive Data was last revised on 2017. Testing performed by: [facility], [address] [place] [address]., [address] Imm gran pct 0.4 % [facility] ([facility]) Comment: Interpretive Data Percent cell count reference ranges are not reported, since discordance with absolute values may lead to misinterpretation of CBC data. Current Interpretive Data was last revised on 2017. Testing performed by: [address], [address] Lymphocyte pct 25.8 % [facility] ([facility]) Comment: Interpretive Data Percent cell count reference ranges are not reported, since discordance with absolute values may lead to misinterpretation of CBC data. Current Interpretive Data was last revised on 2017. Testing performed by: [facility], [address] [place] [address]., [address] Monocyte pct 9.3 % ALEXIA ELIZONDO (ESTHER) Comment: Interpretive Data Percent cell count reference ranges are not reported, since discordance with absolute values may lead to misinterpretation of CBC data. Current Interpretive Data was last revised on 2017. Testing performed by: [facility], [address] [place] [address]., [address] Eosinophil pct 3.4 % VENESSA ELIZONDO (ESTHER) Comment: Interpretive Data Percent cell count reference ranges are not reported, since discordance with absolute values may lead to misinterpretation of CBC data. Current Interpretive Data was last revised on 2017. Testing performed by: [address], [address] Basophil pct 1.1 % [facility] ELIZONDO (ESTHER) Comment: Interpretive Data Percent cell count reference ranges are not reported, since discordance with absolute values may lead to misinterpretation of CBC data. Current Interpretive Data was last revised on 2017. Testing performed by: [address], [address] Blood 05/13/2025 9:54 AM CONTINUOUS MINER OPERATOR HELPER 05/13/2025 2:39 PM CONTINUOUS MINER OPERATOR HELPER Himanshu Liz MD LAB BLOOD ORDERABLES Tyra l Result [facility] (ESTHER) 1 [facility] Department [place] [address] * (ABNORMAL) Urinalysis reflex to microscopic and culture Urine (05/13/2025 9:54 AM CONTINUOUS MINER OPERATOR HELPER) Color, ur Yellow Yellow Comment:Testing performed by : [address], [address] Clarity, ur Clear Clear ALEXIA COLE (ESTHER) Comment:Testing performed by : [address], [address] Specific gravity, ur 1.009 1.003 - 1.030 [facility] ([facility]) Comment:Testing performed by : [address], [address] pH, urine 6.0 [facility] ([facility]) Comment: Interpretive Data U rine pH is affected by diet, medications, systemic acid-base disturbances, and renal tubular function. pH may affect urinary stone formation. For example, urine pH below 6.0 may help reduce the tendency for calcium phosphate stones and pH greater than 6.0 may reduce the tendency for uric acid stone formation. Source: [facility] [place] Approach Current Interpretive Data was last revised on 2017 Testing performed by: [address], [address] Protein, ur ql Negative Negative [facility] ([facility]) Comment:Testing performed by : [address], [address] Glucose, ur ql Negative Negative [facility] ([facility]) Comment:Testing performed by : [address], [address] Ketones, ur Negative Negative [facility] (ESTHER) Comment:Testing performed by : [address], [address] Bilirubin, ur Negative Negative [facility] ([facility]) Comment:Testing performed by : [address], [address] Blood, ur Negative Negative [facility] ([facility]) Comment:Testing performed by : [address], [address] Urobilinogen, ur <2.0 <2.0 mg/dL [facility] ([facility]) Comment:Testing performed by : [address], [address] Nitrite, ur Negative Negative [facility] ([facility]) Comment:Testing performed by : [address], [address] Leukocyte esterase, ur 1+(A) Negative [facility] ([facility]) Comment:Testing performed by : [address], [address] UA reflex comment Reflex to microscopic UA will be performed. [facility] ([facility]) Comment:Testing performed by : [address], [address] Urine 05/13/2025 9:54 AM CONTINUOUS MINER OPERATOR HELPER 05/13/2025 2:39 PM CONTINUOUS MINER OPERATOR HELPER us Himanshu Liz MD LAB MICROBIOLOGY - GENERA L ORDERABLES Final Result [facility] ([facility]) 1 [facility] Department [place] [address] * (ABNORMAL) CBC with auto differential (05/13/2025 9:54 AM CONTINUOUS MINER OPERATOR HELPER) WBC 5.51 3.80 - 9.90 K/cumm Comment:Testing performed by : [address], [address] Hgb 13.9 11.9 - 15.5 g/dL [facility] ([facility]) Comment:Testing performed by : [address], [address] Hct 43.7 35.6 - 45.5 % [facility] ([facility]) Comment:Testing performed by : [address], [address] Plt 307 150 - 400 K/cumm [facility] ([facility]) Comment:Testing performed by : [address], [address] MPV 10.8 9.1 - 12.3 fL [facility] ([facility]) Comment:Testing performed by : [address], [address] RBC 4.56 3.90 - 5.20 M/cumm [facility] ([facility]) Comment:Testing performed by : [address], [address] MCV 95.8 81.3 - 96.4 fL [facility] ([facility]) Comment:Testing performed by : [address], [address] MCH 30.5 27.1 - 33.3 pg [facility] ([facility]) Comment:Testing performed by : [address], [address] MCHC 31.8(L) 32.3 - 35.7 g/dL ALEXIA ELIZONDO (ESTHER) Comment:Testing performed by : [facility], [address] [place] [address], [address] RDW CV 13.9 11.1 - 14.9 % ALEXIA ELIZONDO (ESTHER) Comment:Testing performed by : [facility], [address] [place] [address], [address] RDW SD 49.0(H) 35.7 - 48.1 fL ALEXIA ELIZONDO (ESTHER) Comment:Testing performed by : [address], [address] NRBC abs 0.00 0.00 - 0.01 K/cumm ALEXIA ELIZONDO (ESTHER) Comment:Testing performed by : [address], [address] Blood 05/13/2025 9:54 AM CONTINUOUS MINER OPERATOR HELPER 05/13/2025 2:39 PM CONTINUOUS MINER OPERATOR HELPER Himanshu Liz MD LAB BLOOD ORDERABLES Tyra chacon Result [facility]LEX[facility] ELIZONDO (ESTHER) 1 [facility] Department [place] [address] * (ABNORMAL) Urinalysis, microscopic only (05/13/2025 9:54 AM CONTINUOUS MINER OPERATOR HELPER) WBC, ur 0-5 0 - 5 /HPF Comment:Testing performed by : [address], [address] RBC, ur 0-2 0 - 2 /HPF ALEXIA ELIZONDO (ESTHER) Comment:Testing performed by : [address], [address] Epithelial cells, squamous, ur 1-5 0 - 5 /HPF ALEXIA ELIZONDO (ESTHER) Comment:Testing performed by : [address], [address] Mucous, ur Present(A) CERLORETTA A (ESTHER) Comment:Testing performed by : [address], [address] Culture Reflex Comment Reflex conditions for urine culture (WBC >10) not met. ALEXIA ELIZONDO (ESTHER) Comment:Testing performed by : [facility], [address] [place] [address]., [address] Urine 05/13/2025 9:54 AM CONTINUOUS MINER OPERATOR HELPER 05/13/2025 2:39 PM CONTINUOUS MINER OPERATOR HELPER us Himanshu Liz MD LAB URINE ORDERABLES Tyra chacon Result [facility] ([place]) 1 [facility] Department [place] [address] * (ABNORMAL) Lipid panel (05/13/2025 9:54 AM CONTINUOUS MINER OPERATOR HELPER) Cholesterol 180 30 - 199 mg/dL Comment: Interpretive Data Ages < or = 19 years Acceptable: <170 mg/dL Borderline high: 170-199 mg/dL High: >or= 200 mg/dL Ages > or = 20 years Desirable: <200 mg/dL Borderline high: 200-239 mg/dL High: >or= 240 mg/dL Literature References: 1. Expert Panel on Integrated Guidelines for Cardiovascular Health and Risk Reduction in Children and Adolescents. Pediatrics 2011;128:S213 2. NCEP Expert Panel. Circulation 2004;110:227 Current Interpretive Data was last revised on 2018. Testing performed by: [facility], [id number] [place] [address]., [address] Triglycerides 206(H) <=149 mg/dL ALEXIA ELIZONDO (ESTHER) Comment: Interpretive Data Ages < or = 9 years Acceptable: <75 mg/dL Borderline high: 75-99 mg/dL High: >or= 100 mg/dL Ages 10 to 20 years Acceptable: <90 mg/dL Borderline high: 90-129 mg/dL High: >or= 130 mg/dL Ages > or = 20 years Desirable: <150 mg/dL Borderline high: 150-199 mg/dL High: 200-499 mg/dL Very high: >or= 499 mg/dL Literature References: 1. Expert Panel on Integrated Guidelines for Cardiovascular Health and Risk Reduction in Children and Adolescents. Pediatrics 2011;128:S213 2. NCEP Expert Panel. Circulation 2004;110:227 Current Interpretive Data was last revised on 2018. Testing performed by: [facility], [address] [place] [address]., [address] HDL 50 >=40 mg/dL ALEXIA ELIZONDO (ESTHER) Comment: Interpretive Data Ages < or = 19 years Acceptable: >45 mg/dL Borderline low: 40-45 mg/dL Low: <40 mg/dL Ages > or = 20 years Desirable: >or= 60 mg/dL Low: <40 mg/dL Literature References: 1. Expert Panel on Integrated Guidelines for Cardiovascular Health and Risk Reduction in Children and Adolescents. Pediatrics 2011;128:S213 2. NCEP Expert Panel. Circulation 2004;110:227 Current Interpretive Data was last revised on 2018. Testing performed by: [facility], [address] [place] [address]., [address] LDL, calculated 95 <=129 mg/dL ALEXIA ELIZONDO (ESTHER) Comment: Interpretive Data Ages < or = 19 years Acceptable: <110 mg/dL Borderline high: 110-129 mg/dL High: >or= 130 mg/dL Ages > or = 20 years Optimal: <100 mg/dL Near optimal: 100-129 mg/dL Borderline high: 130-159 mg/dL High: >160 mg/dL Calculated using the Pietro LDL-C estimating equation. This equation was implemented on 2024. Prior to this date LDL-C was estimated using the Friedewald equation. Literature References: 1. Expert Panel on Integrated Guidelines for Cardiovascular Health and Risk Reduction in Children and Adolescents. Pediatrics 2011;128:S213 2. NCEP Expert Panel. Circulation 2004;110:227 3. Pietro Daley et al. LACY Cardiol. 2020 October 16;5(5):540-548. doi: 10.1001/jamacardio.2020.0013 Current Interpretive Data was last revised on 2024. Testing performed by: [facility], [address] [place] [address]., [address] Non-HDL Cholesterol 130 mg/dL ALEXIA ELIZONDO (ESTHER) Comment: Interpretive Data Ages < or = 19 years Acceptable: <120 mg/dL Borderline high: 120-144 mg/dL High: >145 mg/dL Ages > or = 20 years When triglycerides are >200 mg/dL, Non-HDL cholesterol is a secondary target of therapy with treatment goals that are 30 mg/dL greater than the LDL cholesterol target. Literature References: 1. Expert Panel on Integrated Guidelines for Cardiovascular Health and Risk Reduction in Children and Adolescents. Pediatrics 2011;128:S213 2. NCEP Expert Panel. Circulation 2004;110:227 Current Interpretive Data was last revised on 2018. Testing performed by: [address] [address] Chol/HDL ratio 4 [facility] ([facility]) Comment:Testing performed by : [address] [address] Blood 05/13/2025 9:54 AM CONTINUOUS MINER OPERATOR HELPER 05/13/2025 2:39 PM CONTINUOUS MINER OPERATOR HELPER Himanshu Liz MD LAB BLOOD ORDERABLES Tyra chacon Result ALEXIA ELIZONDO (ESTHER) 1 [facility] Department of Laboratories [place] [id number] * Comprehensive metabolic panel (05/13/2025 9:54 AM CONTINUOUS MINER OPERATOR HELPER) Sodium 141 135 - 145 mmol/L Comment:Testing performed by : [address] [address] Potassium, pl 4.3 3.3 - 4.9 mmol/L [facility] ([facility]) Comment:Testing performed by : [address], [address] Chloride 105 97 - 110 mmol/L [facility] ([facility]) Comment:Testing performed by : [address] [address] CO2 24 22 - 32 mmol/L [facility] ([facility]HER) Comment:Testing performed by : [address], [address] Anion gap 12 2 - 15 mmol/L [facility] (ESTHER) Comment:Testing performed by : [address], [address] BUN 16 6 - 25 mg/dL [facility] ([facility]) Comment:Testing performed by : [address], [address] Creatinine 0.70 0.60 - 1.10 mg/dL [facility] ([facility]) Comment: Icteric sample, test results may be affected. Testing performed by: [address] [address] Glucose 87 70 - 199 mg/dL [facility] ([facility]) Comment: Interpretive Data Fasting glucose >/= 126 mg/dl is diagnostic for diabetes. Fasting is defined as no caloric intake for at least 8 hours. Fasting glucose between 100 mg/dl to 125 mg/dl is diagnostic of prediabetes. In a patient with classic symptoms of hyperglycemia or hyperglycemic crisis, a random glucose >/= 200 mg/dl is diagnostic for diabetes. In the absence of unequivocal hyperglycemia, results should be confirmed by repeat testing. The classification and Diagnosis of Diabetes Diabetes Care 2021; 46: S19-S40. Current interpretive data was last revised 2022. Testing performed by: [address], [address] Calcium 9.9 8.5 - 10.3 mg/dL [facility] ([facility]) Comment:Testing performed by : [address], [address] Bilirubin, total 1.1 0.1 - 1.2 mg/dL [facility] (ESTHER) Comment:Testing performed by : [address] [address] Protein, pl 7.0 6.5 - 8.5 g/dL [facility] ([facility]HER) Comment:Testing performed by : [address], [address] Albumin 4.3 3.5 - 5.0 g/dL [facility] ([facility]) Comment:Testing performed by : [address], [address] Alk phos 89 40 - 130 Units/L [facility] ([facility]) Comment:Testing performed by : [address], [address] ALT 24 7 - 45 Units/L [facility] ([facility]) Comment:Testing performed by : [address], [address] AST 33 10 - 45 Units/L [facility] (ESTHER) Comment:Testing performed by : [facility] [address] [facility], [place]., [address] Blood 05/13/2025 9:54 AM CONTINUOUS MINER OPERATOR HELPER 05/13/2025 2:39 PM CONTINUOUS MINER OPERATOR HELPER us Himanshu Liz MD LAB BLOOD ORDERABLES Tyra l Result [facility] [place]) 1 [facility] Department [place] [address] * MRI Lumbar Spine WO Contrast (2025 9:32 AM CONTINUOUS MINER OPERATOR HELPER) Anatomical Region Laterality Modality Spine N/A Magnetic Resonan ce 2025 4:56 PM CONTINUOUS MINER OPERATOR HELPER Impressions 2025 4:56 PM CONTINUOUS MINER OPERATOR HELPER Lumbar degenerative disc and joint disease as described above. Electronically signed by: John Robert MD Narrative 2025 4:56 PM CONTINUOUS MINER OPERATOR HELPER EXAMINATION: Magnetic resonance imaging (MRI) of the lumbar spine without contrast HISTORY: Low back pain, symptoms persist with > 6 wks treatment. TECHNIQUE: Multiplanar multi-weighted MRI of the lumbar spine was performed without intravenous contrast using the standard lumbar spine protocol. COMPARISON: 10/16/2024, 04/04/2023 FINDINGS: Grade 1 L4-L5 anterolisthesis and trace L5-S1 retrolisthesis. No aggressive marrow replacing osseous lesions or processes are visualized. There are no compression fractures. Multilevel degenerative disc disease. Mild Modic type II degenerative endplate changes are present at L5-S1. The conus medullaris terminates at the level of L1-L2. The distal spinal cord signal intensity is normal. Limited views of the abdomen and pelvis show no soft tissue abnormality. L1-2: Diffuse disc bulge. Ligamentum flavum infolding and prominent dorsal epidural fat. There is moderate facet arthropathy. There is mild neuroforaminal stenosis. There is mild spinal canal stenosis. L2-3: Diffuse disc bulge. Marked ligamentum flavum infolding. There is moderate facet arthropathy. There is mild right and moderate left neuroforaminal stenosis. There is moderate spinal canal stenosis. Bilateral recess stenoses are more prominent on the left. L3-4: Diffuse disc bulge. Marked ligamentum flavum infolding. There is moderate facet arthropathy. There is moderate neuroforaminal stenosis. There is severe spinal canal stenosis. L4-5: Diffuse disc bulge. Marked ligamentum flavum infolding. There is severe facet arthropathy. There is severe neuroforaminal stenosis. There is severe spinal canal stenosis. L5-S1: Posterior disc-osteophyte complex. No significant ligamentum flavum infolding. There is moderate facet arthropathy. There is mild right and moderate left neuroforaminal stenosis. There is no spinal canal stenosis. Procedure Note John Robert MD - 2025 EXAMINATION: Magnetic resonance imaging (MRI) of the lumbar spine without contrast HISTORY: Low back pain, symptoms persist with > 6 wks treatment. TECHNIQUE: Multiplanar multi-weighted MRI of the lumbar spine was performed without intravenous contrast using the standard lumbar spine protocol. COMPARISON: 10/16/2024, 04/04/2023 FINDINGS: Grade 1 L4-L5 anterolisthesis and trace L5-S1 retrolisthesis. No aggressive marrow replacing osseous lesions or processes are visualized. There are no compression fractures. Multilevel degenerative disc disease. Mild Modic type II degenerative endplate changes are present at L5-S1. The conus medullaris terminates at the level of L1-L2. The distal spinal cord signal intensity is normal. Limited views of the abdomen and pelvis show no soft tissue abnormality. L1-2: Diffuse disc bulge. Ligamentum flavum infolding and prominent dorsal epidural fat. There is moderate facet arthropathy. There is mild neuroforaminal stenosis. There is mild spinal canal stenosis. L2-3: Diffuse disc bulge. Marked ligamentum flavum infolding. There is moderate facet arthropathy. There is mild right and moderate left neuroforaminal stenosis. There is moderate spinal canal stenosis. Bilateral recess stenoses are more prominent on the left. L3-4: Diffuse disc bulge. Marked ligamentum flavum infolding. There is moderate facet arthropathy. There is moderate neuroforaminal stenosis. There is severe spinal canal stenosis. L4-5: Diffuse disc bulge. Marked ligamentum flavum infolding. There is severe facet arthropathy. There is severe neuroforaminal stenosis. There is severe spinal canal stenosis. L5-S1: Posterior disc-osteophyte complex. No significant ligamentum flavum infolding. There is moderate facet arthropathy. There is mild right and moderate left neuroforaminal stenosis. There is no spinal canal stenosis. IMPRESSION: Lumbar degenerative disc and joint disease as described above. Electronically signed by: John Robert MD Sania Barrera NP IMG MRI PROCEDURES Final Result * Diagnostic Mammogram Bilateral W Chevy (07/01/2024 10:57 AM CONTINUOUS MINER OPERATOR HELPER) Anatomical Region Laterality Modality Breast Bilateral Mammography 07/01/2024 11:0 2 AM CONTINUOUS MINER OPERATOR HELPER Impressions 07/01/2024 11:02 AM CONTINUOUS MINER OPERATOR HELPER No new suspicious abnormality identified within either breast at this time. OVERALL FINAL ASSESSMENT: BI-RADS Category 1: Negative. RECOMMENDATION: Annual screening mammography is recommended. Electronically signed by: SEBASTIAN JAIN MD Narrative 07/01/2024 11:02 AM CONTINUOUS MINER OPERATOR HELPER EXAMINATION: BILATERAL DIGITAL DIAGNOSTIC MAMMOGRAM INCLUDING CAD AND BILATERAL DIGITAL BREAST TOMOSYNTHESIS HISTORY: 74-year-old female with no new breast related symptoms or complaints. Annual exam. COMPARISON: 12/20/2022 and multiple priors dating back to 2014. TECHNIQUE: Full field digital mammographic views of BOTH breasts were performed, including computer aided detection (CAD) and BILATERAL digital breast tomosynthesis (DBT). BREAST PARENCHYMAL COMPOSITION: The breasts are heterogeneously dense, which may obscure small masses. MAMMOGRAM FINDINGS: There is no new suspicious abnormality identified within either breast on mammogram. Previously described focal asymmetry in the posterior right breast is no longer visible. 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 Has taken vitamin-D. Performs regular weight-bearing exercise. Regularly consumes dairy products. Drinks caffeinated beverages. COMPARISON: June 14, 2017 FINDINGS: AP LUMBAR SPINE L1-L4: Total BMD is 1.475 g/cm2 T-score is 3.9 Dissimilar scan types or analysis methods precludes assessment for calculating a significant change. RIGHT HIP: Total BMD is 0.992 g/cm2 T-score is 0.4 Dissimilar scan types or analysis methods precludes assessment for calculating a significant change. Femoral neck BMD is 0.833 g/cm2 T-score is -0.1 FRAX: FRAX not reported due to T-scores of hip, femoral neck and/or spine being at or above -1.0 (Normal). IMPRESSION: Normal bone mass. REFERENCE: Bone mineral density: Normal (T-score above or = -1.0) Low bone mass (T-score between -1.0 and -2.5) replaces the previously used term osteopenia Osteoporosis (T-score = or below -2.5) Medical evaluation for secondary causes of low bone mineral density may be appropriate. FRAX is a World Health Organization validated fracture risk assessment tool that calculates a person's 10 year probability of a major osteoporosis related fracture and hip fracture. According to the National Osteoporosis Foundation guidelines, postmenopausal women and men age 50 or older with low bone mass and a 10 year probability of a major osteoporosis related fracture = or greater than 20% or a 10 year probability of a hip fracture = or greater than 3% should be considered for treatment. For further information, including treatment recommendations, please refer to the 2019 ISCD Official Positions (http://www.iscd.org) and the NOF's Clinician's Guide to Prevention and Treatment of Osteoporosis (http://www.nof.org/professionals/clinical-guidelines) THIS IS AN ELECTRONICALLY VERIFIED FINAL REPORT 05/03/2023 8:50 AM - Electronically signed by Stanton Russell M.D. 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 Has taken vitamin-D. Performs regularweight-bearing exercise. Regularly consumes dairy products. Drinks caffeinatedbeverages. COMPARISON: June 14, 2017 FINDINGS: AP LUMBAR SPINE L1-L4: Total BMD is 1.475 g/cm2 T-score is 3.9 Dissimilar scan types or analysis methods precludes assessment for calculating a significant change. RIGHT HIP: Total BMD is 0.992 g/cm2 T-score is 0.4 Dissimilar scan types or analysis methods precludes assessment for calculating a significant change. Femoral neck BMD is 0.833 g/cm2 T-score is -0.1 FRAX: FRAX not reported due to T-scores of hip, femoral neck and/or spine beingat or above -1.0 (Normal). IMPRESSION: Normal bone mass. REFERENCE: Bone mineral density: Normal (T-score above or = -1.0) Low bone mass (T-score between -1.0 and -2.5) replaces thepreviously used term osteopenia Osteoporosis (T-score = or below -2.5) Medical evaluation for secondary causes of low bone mineral density may be appropriate. FRAX is a World Health Organization validated fracture risk assessmenttool that calculates a person's 10 year probability of a major osteoporosisrelated fracture and hip fracture. According to the National OsteoporosisFoundation guidelines, postmenopausal women and men age 50 or older with low bonemass and a 10 year probability of a major osteoporosis related fracture = or greater than 20% or a 10 year probability of a hip fracture = or greaterthan 3% should be considered for treatment. For further information, including treatment recommendations, please referto the 2019 ISCD Official Positions (http://www.iscd.org) and the NOF's Clinician's Guide to Prevention and Treatment of Osteoporosis (http://www.nof.org/professionals/clinical-guidelines) THIS IS AN ELECTRONICALLY VERIFIED FINAL REPORT 05/03/2023 8:50 AM - Electronically signed by Stanton Russell M.D. RB: SB Report ID: [id number] Reading Location: [place] [address] Himanshu Liz MD IM DXA PROCEDURES Final Result * Stool DNA - Cologuard (12/13/2022 11:30 AM CDT) Stool DNA - Cologuard Negative Negative [employer] (CLIA #:[id number]) Comment: NEGATIVE TEST RESULT. A negative Cologuard result indicates a low likelihood that a colorectal cancer (CRC) or advanced adenoma (adenomatous polyps with more advanced pre-malignant features) is present. The chance that a person with a negative Cologuard test has a colorectal cancer is less than 1 in 1500 (negative predictive value >99.9%) or has an advanced adenoma is less than 5.3% (negative predictive value 94.7%). These data are based on a prospective cross-sectional study of 10,000 individuals at average risk for colorectal cancer who were screened with both Cologuard and colonoscopy. (Stephanie Gtz et al, N Engl J Med 2014;370(14):9927-6437) The normal value (reference range) for this assay is negative. COLOGUARD RE-SCREENING RECOMMENDATION: Periodic colorectal cancer screening is an important part of preventive healthcare for asymptomatic individuals at average risk for colorectal cancer. Following a negative Cologuard result, the [place] [employer] and U.S. Multi-Society Task Force screening guidelines recommend a Cologuard re-screening interval of 3 years. References: [place] [employer] Guideline for Colorectal Cancer Screening: https://www.cancer.org/cancer/bvlqj-uszrcu-tvwobj/tuwftgfov-sniidwpyy-rutshnk/ac s-rec ommendations.html.; Favian LEBRON, Kelsey DIA, Rafi WarrenK, Colorectal Cancer Screening: Recommendations for Physicians and Patients from the U.S. Multi-Society Task Force on Colorectal Cancer Screening , Am J Gastroenterology 2017; 112:4383-6490. TEST DESCRIPTION: Composite algorithmic analysis of stool DNA-biomarkers with hemoglobin immunoassay. Quantitative values of individual biomarkers are not reportable and are not associated with individual biomarker result reference ranges. Cologuard is intended for colorectal cancer screening of adults of either sex, 45 years or older, who are at average-risk for colorectal cancer (CRC). Cologuard has been approved for use by the U.S. FDA. The performance of Cologuard was established in a cross sectional study of average-risk adults aged 50-84. Cologuard performance in patients ages 45 to 49 years was estimated by sub-group analysis of near-age groups. Colonoscopies performed for a positive result may find as the most clinically significant lesion: colorectal cancer [4.0%], advanced adenoma (including sessile serrated polyps greater than or equal to 1cm diameter) [20%] or non- advanced adenoma [31%]; or no colorectal neoplasia [45%]. These estimates are derived from a prospective cross-sectional screening study of 10,000 individuals at average risk for colorectal cancer who were screened with both Cologuard and colonoscopy. (Stephanie Gtz et al, N Engl J Med 2014;370(14):0540-5928.) Cologuard may produce a false negative or false positive result (no colorectal cancer or precancerous polyp present at colonoscopy follow up). A negative Cologuard test result does not guarantee the absence of CRC or advanced adenoma (pre-cancer). The current Cologuard screening interval is every 3 years. ([place] [employer] and U.S. Multi-Society Task Force). Cologuard performance data in a 10,000 patient pivotal study using colonoscopy as the reference method can be accessed at the following location: [email or web address] Access/results. Additional description of the Cologuard test process, warnings and precautions can be found at [email or web address]. Stool 12/13/2022 11:3 0 AM CDT 12/14/2022 6:21 PM CDT Himanshu Liz MD LAB BODY FLUIDS AND STOOL S ORDERABLES Final Result [facility] (CLIA #:[id number]) 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 us Historical Provider LAB BLOOD ORDERABLES Tyra l Result HISTORICAL RESULTS from Last 3 Months or Most Recently Relevant to Health Maintenance Insurance [facility] MEDICARE T MEDICARE UHC MEDICARE ADVANTAGE [employer] MEDICARE Advance Directives For more information, please contact: [phone] * Full Code (Latest Code Status on File) Date Activated Date Inactivated Comments 07/31/2022 2:12 PM 08/01/2022 3:58 PM * Full Code Date Activated Date Inactivated Comments 09/29/2020 11:05 AM 09/29/2020 7:49 PM * Full Code Date Activated Date Inactivated Comments 07/27/2017 12:19 AM 07/27/2017 7:28 PM Care Teams Telecommunications Network Planner Relationship Specialty Start Date End Date Himanshu Liz MD [address] [place] [address] PCP - General 09/24/15 Jared Crump MD [address] [place] [address] Surgeon Orthopedic Surgery 09/29/20 Steffany Bailey PT Physical Therapist Physical Therapy 12/11/24
[2025-05-29 20:39] LABS: Hematocrit 39.6 % (35.0-42.0); Hemoglobin 13.3 g/dL (11.7-13.8); Immature Granulocyte Percent A 0.2 % (0.0-0.0); Lymphocytes Absolute Auto 1.24 K/mm3 (1.10-4.50); Mean Corpuscular HGB Conc 33.6 g/dL (32-36); Mean Corpuscular Hemoglobin 31.3 pg (27.0-31.0); Mean Corpuscular Volume 93.2 fL (78.0-102.0); Nucleated Red Blood Cells Absolute Auto 0.00 K/mm3 (0.00-0.00); Nucleated Red Blood Cells Perc 0.0 % (0-0.0); Platelet Count Result 254 K/mm3 (150-420); Red Blood Count 4.25 M/mm3 (4.20-5.40); White Blood Count 6.2 K/mm3 (4.8-10.8)
[2025-05-29 20:48] LABS: Alanine Aminotransferase 26 U/L (6-35); Albumin Level 4.6 g/dL (3.5-5.1); Alkaline Phosphatase 88 U/L (38-126); Anion Gap 11 mmol/L (4-12); Aspartate Amino Transferase 36 U/L (14-36); Bilirubin,Total 1.1 mg/dL (0.2-1.3); Blood Urea Nitrogen 27 mg/dL (7-17); Calcium 9.6 mg/dL (8.4-10.2); Carbon Dioxide 26 mmol/L (22-30); Chloride 104 mmol/L (98-107); Estimated CRCL calculation 49 ml/min; Estimated Glomerular Filt Rate > 60; Glucose 109 mg/dL (65-110); Osmolality Calculated 298 mOsm/kg (285-295); Potassium 4.1 mmol/L (3.4-5.0); Sodium 141 mmol/L (137-145); Total Protein 7.3 g/dL (6.3-8.2)
[2025-05-29 21:02] LABS: Troponin I < 0.012 ng/mL (0.000-0.034)
[2025-05-29] MEDS: cefTRIAXone 1 GM, LIDOCAINE 1% LOCAL INJ 2.1 ML IM (21:09)
[2025-05-29 21:17] VITALS: BP 142/85; PULSE 76; RESP 16; TEMP 36.6; O2SAT 98
--- NOTE | 2025-05-29 21:41 | PC.NURSE ---
ERP aware of pt vital signs. No new orders.
--- NOTE | 2025-06-01 13:32 | PC.NURSE ---
PRELIMINARY URINE CULTURE REPORT; GROWTH OBSERVED, WILL WAIT FOR FINAL CULTURE AND SENSATIVITY.
== END 2025-05-29 22:14 | disposition home or self-care (01) ==
PROVIDERS: Emergency Provider Emergency Medicine; PCP Family Medicine
DX: N39.0 Urinary tract infection, site not specified (principal); H53.9 Unspecified visual disturbance
CPT/HCPCS: 36415; 70450; 71045; 80053; 81001; 83605; 84484; 85025; 85652; 93005; 96372; 99284; J0696; J2003